=== PATIENT | female | born 1950 | race Caucasian/White ===

== ENCOUNTER → 2017-01-05 | Outpatient (CLI) | payer BC, MEDICARE ==
[~2017-01-05] MED LIST: /LOR25TA PO; ACET500C PO; ACET50TA PO; ALEV220C2 PO; ALEV220T26 PO; AMIT10TA PO; AMIT10TA2 PO; AMIT50TA PO; AMIT50TA4 PO; BENA25TA4 PO; CYCL5TA PO; CYMB1CAP PO; FIORTAB PO; FLEXERIL PO; GABA300C2 PO; GEMF600T PO; GRALISE PO; HYDR-3716 PO; IBUP400T OR; LEVO75TA2 PO; LISI5TAB PO; MELOPOW PO; METH5TAB2 PO; OMEP20TA7 PO; OXYB5TAB5 PO; SIMV40TA2 PO; SOMA350T PO; TOPA100T PO; TOPA100T8 PO; TOPI100T OR; TPS CREAM TOP; TRAZ50TA2 PO; VOLT1GEL2 TD; ZEBE5TAB OR; [UNRECOGNIZED DRUG - CODE] TOP; combination cream TOP; flexeril PO
--- NOTE | 2017-01-17 00:31 | ECWPNPC ---
PATIENT NAME: MORALES WHITTINGTON : 1950 GENDER: FEMALE VISIT DATE: 01/05/2017 DISCHARGE DATE: 01/05/17 1536 VISIT LOCKED DATE TIME: PHYSICIAN: JYOTI JONES RESOURCE: JYOTI JONES HISTORY OF PRESENT ILLNESS HISTORY OF PRESENT ILLNESS: HERE FOR F/U AND MEDICINE MANAGEMENT OF CHONIC NECK AND RIGHT SHOULDER PAIN.HAD TPI ON 07-01-16 TO RIGHT NECK.POST PROC. PAIN DIARY REVIEWED THIS SHOWED ONE MOS. MARKED DECREASE IN PAIN.REPORTING NEW ONSET OF LEFT ARM AND LEFT UPPER SCAPULAR PAIN. RATING PAIN VAS 5/10.CURRENT CHRONIC PAIN MEDICATION :METHADONE 5MG TWO TAB. BID,NORCO 7.5/325 UP TO 4 TAB PER DAY IF NEEDED AND AMITRIPTYLINE 50MG AT HS.FINDS CURRENT MEDICATION SOMEWHAT EFFECTIVE AND DENIES SIDE EFFECTS. PAIN THE PATIENT DESCRIBES THE PAIN... THE PATIENT DESCRIBES THE PAIN... FALL RISK SCREENING: SCREENING :NO FALLS IN THE PAST YEAR CURRENT MEDICATIONS TAKING LEVOTHYROXINE SODIUM 75 MCG CAPSULE ORALLY TAKING AMITRIPTYLINE HCL 50 MG TABLET ORALLY DAILY @ BEDTIME TAKING OXYBUTYNIN CHLORIDE 1 TAB ORALLY DAILY TAKING ADVIL MIGRAINE 200 MG CAPSULE 1 CAPSULE NEEDED ORALLY EVERY 6 HRS NEEDED TAKING VOLTAREN 1 % GEL ONE APPLICATION EXTERNALLY 2GM TO AFFECTED AREA TID NECK PRN TAKING LISINOPRIL 20 MG TABLET 1 TABLET ORALLY ONCE A DAY TAKING [id number]-COD 14-746-94-30 MG CAPSULE 1 CAPSULE NEEDED ORALLY EVERY 8 HRS NEEDED FOR PAIN MDD3 TAKING METHADONE HCL 5 MG TABLET 2 ORALLY Q8H MDD6, NOTES: TAKING Q 12 HOURS TAKING IBUPROFEN 200 MG TABLET 2 TABLETS ORALLY EVERY 6 HRS PRN TAKING NORCO 7.5-325 MG TABLET 1 TABLET NEEDED ORALLY Q6H PRN MDD4 NOT-TAKING COLACE 100 MG CAPSULE 2 ORALLY BID PAST MEDICAL HISTORY HYPOTHYROIDISM HYPERTENSION OSTEOPENIA ARTHRITIS ALLERGIES CYMBALTA: TONGUE AND LIP SWELLING: ALLERGY SOCIAL HISTORY GENERAL: PAIN CLINIC PFS, CLERGY, PUBLIC HEALTH REFERRALS CLERGY REFERRAL NEEDED?NO WAS THE PROVIDER NOTIFIED OF ANY PERTINENT INFO?NO PFS REFERRAL NEEDED?NO PUBLIC HEALTH REFERRAL NEEDED?NO PATIENT: ____. REVIEW OF SYSTEMS CONSTITUTIONAL: ANY CHANGE IN YOUR MEDICAL CONDITION? NO . CHILLS NO . FEVER NO . INFECTION: DO YOU HAVE NEW INFECTIONS? NO . DO YOU HAVE HISTORY OF MRSA? NO . MUSCULOSKELETAL: ANY NEW PATTERNS OF PAIN OR NUMBNESS? NO . GASTROENTEROLOGY: ANY NEW CHANGE IN BOWEL CONTROL? NO . GENITOURINARY: ANY NEW CHANGE IN BLADDER CONTROL? NO . IS THERE A CHANCE YOU COULD BE ? NO . HEMATOLOGY/LYMPH: DO YOU TAKE ANY BLOOD THINNERS? (FOR EXAMPLE- COUMADIN, PLAVIX, AGGRENOX, PLATEL, PRADAXA, OR XARELTO) NO . WHEN WAS YOUR LAST DOSE? DATE: TIME: . NEUROLOGY: HAVE YOU FALLEN IN THE PAST 6 MONTHS? NO . ANY NEW EXTREMITY NUMBNESS OR WEAKNESS? NO . CARDIOLOGY: DO YOU HAVE A PACEMAKER OR DEFIBRILLATOR? NO . RESPIRATORY: HAVE YOU BEEN SICK IN THE PAST WEEK? NO . FEVER NO . FLU LIKE SYMPTOMS? NO . COUGH NO . INTEGUMENTARY: DO YOU HAVE ANY RASHES OR OPEN SORES? NO . ALLERGIC/IMMUNO: ARE YOU ALLERGIC TO SHELLFISH OR IV DYE? NO . ANY NEW ALLERGIES? NO . PSYCHIATRIC: DO YOU HAVE THOUGHTS OF HURTING YOURSELF OR SOMEONE ELSE? NO . ARE YOU ABUSED, NEGLECTED, OR IN AN UNSAFE ENVIRONMENT? NO . ENDOCRINOLOGY: ARE YOU DIABETIC? NO . OTHER: DO YOU NEED ANY PRESCRIPTIONS? NO . IF YES, PLEASE LIST: ____ . ANY NEW PROBLEMS WITH YOUR MEDICATIONS? NO . WHEN DID YOU LAST EAT? ____ . WHEN DID YOU LAST DRINK? ____ . WHAT DID YOU LAST DRINK? ____ . NAME OF PERSON DRIVING YOU HOME? ____ . DO YOU HAVE ANY OTHER QUESTIONS OR CONCERNS NO . REVIEWED BY: PROVIDER: JYOTI MCGOWAN . VITAL SIGNS WT 196.6 LBS, HT 62 IN, BMI 35.95 INDEX, BP 115/54 MM HG, HR 72 /MIN, RR 18 /MIN, TEMP 97.6 F, OXYGEN SAT % 94, NA INITIALS HS, REVIEWED BY: AD. EXAMINATION GENERAL EXAMINATION: LUNGS:LUNG SOUNDS ARE CLEAR. HEART:HEART RATE REGULAR. MUSCULOSKELETAL:*,PAIN ELICITED WITH PALPATION OVER CERVICAL SPINOUS PROCESSES AND ACROSS THE TRAPEZIUS MUSCLES BILATERALLY R>L.. PAIN W PALPATION OVER BILAT. OCCIPITAL NERVE ROUTES SPECIFIC POINT TENDERNESS OVER UPPER THORACIC FACET JOINTS R>L.. DIAGNOSTIC DATA:REVIEWED CT SCAN OF CERVICAL SPINE 2012-MODERATE DEGENRATIVE CHANGES. ASSESSMENTS POST LAMINECTOMY SYNDROME - M96.1 (PRIMARY) CHRONIC PRESCRIPTION OPIATE USE - Z79.891 TREATMENT POST LAMINECTOMY SYNDROME CONTINUE METHADONE HCL TABLET, 5 MG, 2, ORALLY, Q8H MDD6, NOTES: TAKING Q 12 HOURS CONTINUE NORCO TABLET, 7.5-325 MG, 1 TABLET NEEDED, ORALLY, Q6H PRN MDD4 TRIGGER POINT 1-2 JYOTI SUMMERS 01/05/2017 3:14:56 PM > BILAT. UPPER BACK/NECK NOTES: TRIGGER POINT INJECTION MATERIAL WAS PRINTED. PREVENTIVE MEDICINE PAIN CLINIC TEACHING: PROCEDURE TEACHING PRINTED INFROMATION ON TPI GIVEN TO AND EXPLAINED TO PT. ALONG WITH PRE-PROCEDURE INSTRUCTIONS. PT. VERBALIZED UNDERSTANDING OF BOTH.. PROCEDURE CODES FA211 ESTABILISHED PATIENT [facility] CHARGE DISPOSITION & COMMUNICATION FOLLOW UP 2WK POST (REASON: TRIGGER POINT BILAT. UPPER BACK/NECK) ELECTRONICALLY SIGNED BY JUAN M JOHNS ON 01/16/2017 AT 03:47 PM EDT DISCLAIMER : THIS IS A VISIT SUMMARY EXTRACTED FROM THE [employer] CHART. IT IS NOT A COPY OF THE [employer] PROGRESS NOTE. MTDD
== END ==
LOC: M PAIN 14:20
PROVIDERS: ATTEND Nurse Practitioner Family
DX: Z09 Encounter for follow-up examination after completed treatment for conditions other than malignant neoplasm (principal); M96.1 Postlaminectomy syndrome, not elsewhere classified; G89.29 Other chronic pain; M54.2 Cervicalgia; M25.511 Pain in right shoulder; I10 Essential (primary) hypertension; E03.9 Hypothyroidism, unspecified; M85.80 Other specified disorders of bone density and structure, unspecified site; M19.90 Unspecified osteoarthritis, unspecified site; Z88.8 Allergy status to other drugs, medicaments and biological substances; F11.20 Opioid dependence, uncomplicated; Z79.891 Long term (current) use of opiate analgesic; Z79.1 Long term (current) use of non-steroidal anti-inflammatories (NSAID); Z79.899 Other long term (current) drug therapy

== ENCOUNTER → 2017-02-08 | Outpatient (CLI) | payer BC ==
--- NOTE | 2017-02-09 00:19 | ECWPNPC ---
PATIENT NAME: MORALES WHITTINGTON : 1950 GENDER: FEMALE VISIT DATE: 02/08/2017 DISCHARGE DATE: 02/08/17 1000 VISIT LOCKED DATE TIME: PHYSICIAN: JYOTI JONES RESOURCE: JYOTI JONES REASON FOR APPOINTMENT 1. POST TPI HISTORY OF PRESENT ILLNESS HISTORY OF PRESENT ILLNESS: HER FOR POST PROCEDURE FOLLOW UP.HAD TPI UPPER BACK ON 01-10-17.HAS HAD EXTREME IMPROVEMENT IN PAIN AND ABILITY TO TOLERATE ACTIVITY.CHIEF AREA OF PAIN IS RIGHT SHOULDER AND ARM.TAKING ADVIL MIGRAINE PRN.CONTINUES WITH DAILY HEADACHES.AREA OF PAIN UPPER BACK AND BETWEEN SHOULDER BLADES IS MUCH BETTER SINCE INJECTIONS.CURRENTLY USING METHADONE 5MG TWO TAB. TID AND HYDROCODONE 7.5MG Q6H PRN FOR PAIN.RATING PAIN VAS 5/10. PAIN THE PATIENT DESCRIBES THE PAIN... FALL RISK SCREENING: SCREENING :NO FALLS IN THE PAST YEAR CURRENT MEDICATIONS TAKING LEVOTHYROXINE SODIUM 75 MCG CAPSULE ORALLY , NOTES: 01-10-17 0730 TAKING AMITRIPTYLINE HCL 50 MG TABLET ORALLY DAILY @ BEDTIME, NOTES: 01-09-17 2100 TAKING OXYBUTYNIN CHLORIDE 1 TAB ORALLY DAILY, NOTES: 01-09-17 1800 TAKING ADVIL MIGRAINE 200 MG CAPSULE 1 CAPSULE NEEDED ORALLY EVERY 6 HRS NEEDED, NOTES: NONE TAKING VOLTAREN 1 % GEL ONE APPLICATION EXTERNALLY 2GM TO AFFECTED AREA TID NECK PRN, NOTES: 01-09-17 2100 TAKING LISINOPRIL 20 MG TABLET 1 TABLET ORALLY ONCE A DAY, NOTES: 01-10-17 0730 TAKING IBUPROFEN 200 MG TABLET 2 TABLETS ORALLY EVERY 6 HRS PRN, NOTES: NONE TAKING NORCO 7.5-325 MG TABLET 1 TABLET NEEDED ORALLY Q6H PRN MDD4, NOTES: 01-10-17 0200 TAKING METHADONE HCL 5 MG TABLET 2 ORALLY Q8H MDD6, NOTES: TAKING Q 12 HOURS 01-10-17 MIDNIGHT TAKING FIORICET/CODEINE 35-075-21-30 MG CAPSULE 1 CAPSULE NEEDED ORALLY EVERY 8H PRN MDD3 MEDICATION LIST REVIEWED AND RECONCILED WITH THE PATIENT PAST MEDICAL HISTORY HYPOTHYROIDISM HYPERTENSION OSTEOPENIA ARTHRITIS ALLERGIES CYMBALTA: TONGUE AND LIP SWELLING: ALLERGY REVIEW OF SYSTEMS CONSTITUTIONAL: ANY CHANGE IN YOUR MEDICAL CONDITION? NO. PT STATES SHE HAD TPI TO BILAT UPPER BACK 01/10/17. PRE PROCEDURE PAIN WAS 7/10. POST PROCEDURE PAIN 1-12/09. PT C/O HEADACHES POST PROCEDURE STARTING IN OCCIPITAL LOBE BILAT SPREADING TO FRONTAL LOBE BILAT. PT RATES HEADACHES 7-05/11. PT TAKES ADVIL FOR HEADACHES WHICH RELIEVES HEADACHES TO 10/11. . CHILLS NO . FEVER NO . INFECTION: DO YOU HAVE NEW INFECTIONS? NO . DO YOU HAVE HISTORY OF MRSA? NO . MUSCULOSKELETAL: ANY NEW PATTERNS OF PAIN OR NUMBNESS? NO . GASTROENTEROLOGY: ANY NEW CHANGE IN BOWEL CONTROL? NO . GENITOURINARY: ANY NEW CHANGE IN BLADDER CONTROL? NO . IS THERE A CHANCE YOU COULD BE ? NO . HEMATOLOGY/LYMPH: DO YOU TAKE ANY BLOOD THINNERS? (FOR EXAMPLE- COUMADIN, PLAVIX, AGGRENOX, PLATEL, PRADAXA, OR XARELTO) NO . WHEN WAS YOUR LAST DOSE? DATE: TIME: . NEUROLOGY: HAVE YOU FALLEN IN THE PAST 6 MONTHS? NO . ANY NEW EXTREMITY NUMBNESS OR WEAKNESS? NO . CARDIOLOGY: DO YOU HAVE A PACEMAKER OR DEFIBRILLATOR? NO . RESPIRATORY: HAVE YOU BEEN SICK IN THE PAST WEEK? NO . FEVER NO . FLU LIKE SYMPTOMS? NO . COUGH NO . INTEGUMENTARY: DO YOU HAVE ANY RASHES OR OPEN SORES? NO . ALLERGIC/IMMUNO: ARE YOU ALLERGIC TO SHELLFISH OR IV DYE? NO . ANY NEW ALLERGIES? NO . PSYCHIATRIC: DO YOU HAVE THOUGHTS OF HURTING YOURSELF OR SOMEONE ELSE? NO . ARE YOU ABUSED, NEGLECTED, OR IN AN UNSAFE ENVIRONMENT? NO . ENDOCRINOLOGY: ARE YOU DIABETIC? NO . OTHER: DO YOU NEED ANY PRESCRIPTIONS? NO . IF YES, PLEASE LIST: ____ . ANY NEW PROBLEMS WITH YOUR MEDICATIONS? NO . WHEN DID YOU LAST EAT? ____ . WHEN DID YOU LAST DRINK? ____ . WHAT DID YOU LAST DRINK? ____ . NAME OF PERSON DRIVING YOU HOME? ____ . DO YOU HAVE ANY OTHER QUESTIONS OR CONCERNS NO . REVIEWED BY: PROVIDER: JYOTI MCGOWAN . VITAL SIGNS WT 195 LBS, HT 62 IN, BMI 35.66 INDEX, BP 121/67 MM HG, HR 62 /MIN, RR 16 /MIN, TEMP 97.4 F, OXYGEN SAT % 95, SAFE IN ENV? (Y/N) Y, NA INITIALS EM, REVIEWED BY: EM. EXAMINATION GENERAL EXAMINATION: LUNGS:LUNG SOUNDS ARE CLEAR. HEART:HEART RATE REGULAR. MUSCULOSKELETAL:*,PAIN ELICITED WITH PALPATION OVER CERVICAL SPINOUS PROCESSES AND ACROSS THE TRAPEZIUS MUSCLES BILATERALLY R>L.. PAIN W PALPATION OVER BILAT. OCCIPITAL NERVE ROUTES SPECIFIC POINT TENDERNESS OVER UPPER THORACIC FACET JOINTS R>L.. DIAGNOSTIC DATA:REVIEWED CT SCAN OF CERVICAL SPINE 2011-MODERATE DEGENRATIVE CHANGES. ASSESSMENTS POST LAMINECTOMY SYNDROME - M96.1 (PRIMARY) CHRONIC PRESCRIPTION OPIATE USE - Z79.891 TREATMENT POST LAMINECTOMY SYNDROME REFILL NORCO TABLET, 7.5-325 MG, 1 TABLET NEEDED, ORALLY, Q6H PRN MDD4, 30 DAY(S), 120, REFILLS 0, NOTES: 01-10-17 0200 CONTINUE METHADONE HCL TABLET, 5 MG, 2, ORALLY, Q8H MDD6, NOTES: TAKING Q 12 HOURS 01-10-17 MIDNIGHT NOTES: ISTOP REGISTRY REVIEWED AND DEMNOSTRATES COMPLLIANCE. BRINGS IN MEDICATIONS WHICH IS APPROPRIATE FOR WHAT WAS DISPENSED. RECENT URINE TOXICOLOGY REVIEWED. NO UNAUTHORIZED MEDICATIONS. NO ILLICIT SUBSTANCES AND PRESCRIBED MEDICATIONS WERE PRESENT. URINE TOX TODAY, RISKS AND BENEFITS OF NARCOTIC/OPIOD MEDICATIONS WERE REVIEWED WITH PATIENT - THIS INCLUDES BUT IS NOT LIMITED TO RISK OF DEPENDANCE/DEVELOPMENT OF ADDICTION, MOOD DISTURBANCE AND DEPRESSION, OSTEOPOROSIS, HORMONAL AND LABIDAL CHANGES, RESPIRATORY DEPRESSION AND . PATIENT IS ADVISED NOT TO DRIVE WHILE ON THESE MEDICATIONS. PROCEDURE CODES FA211 ESTABILISHED PATIENT [facility] CHARGE DISPOSITION & COMMUNICATION FOLLOW UP 2 MONTHS ELECTRONICALLY SIGNED BY JUAN M JOHNS ON 02/08/2017 AT 02:42 PM EDT DISCLAIMER : THIS IS A VISIT SUMMARY EXTRACTED FROM THE [employer] CHART. IT IS NOT A COPY OF THE [employer] PROGRESS NOTE. MTDD
== END ==
LOC: M PAIN 08:40
PROVIDERS: ATTEND Nurse Practitioner Family
DX: G89.29 Other chronic pain (principal); M96.1 Postlaminectomy syndrome, not elsewhere classified; E03.9 Hypothyroidism, unspecified; I10 Essential (primary) hypertension; M85.80 Other specified disorders of bone density and structure, unspecified site; R51 Headache; M19.90 Unspecified osteoarthritis, unspecified site; Z79.891 Long term (current) use of opiate analgesic; Z79.1 Long term (current) use of non-steroidal anti-inflammatories (NSAID); Z79.899 Other long term (current) drug therapy; Z88.8 Allergy status to other drugs, medicaments and biological substances

== ENCOUNTER → 2017-03-21 | Outpatient (CLI) | payer BC ==
--- NOTE | 2017-03-21 23:59 | ECWPNPC ---
PATIENT NAME: MORALES WHITTINGTON : 1950 GENDER: FEMALE VISIT DATE: 03/21/2017 DISCHARGE DATE: 03/21/17 1536 VISIT LOCKED DATE TIME: PHYSICIAN: JYOTI JONES RESOURCE: JYOTI JONES REASON FOR APPOINTMENT 1. BACK HISTORY OF PRESENT ILLNESS HISTORY OF PRESENT ILLNESS: HER FOR 2 MONTH FOLLOW UP.HAD TPI UPPER BACK ON 01-10-17.HAD EXTREME IMPROVEMENT IN PAIN AND ABILITY TO TOLERATE ACTIVITY.CHIEF AREA OF PAIN IS LEFT NECK AND UPPER BACK. .TAKING ADVIL MIGRAINE PRN.CONTINUES WITH DAILY HEADACHES.CURRENTLY USING METHADONE 5MG TWO TAB. TID AND HYDROCODONE 7.5MG Q6H PRN FOR PAIN.RATING PAIN VAS 4/10. PAIN THE PATIENT DESCRIBES THE PAIN... THE PATIENT DESCRIBES THE PAIN... FALL RISK SCREENING: SCREENING :NO FALLS IN THE PAST YEAR CURRENT MEDICATIONS TAKING LEVOTHYROXINE SODIUM 75 MCG CAPSULE ORALLY DAILY TAKING AMITRIPTYLINE HCL 50 MG TABLET ORALLY DAILY @ BEDTIME TAKING OXYBUTYNIN CHLORIDE 1 TAB ORALLY DAILY TAKING ADVIL MIGRAINE 200 MG CAPSULE 2 CAPSULE NEEDED ORALLY EVERY 6 HRS NEEDED TAKING VOLTAREN 1 % GEL ONE APPLICATION EXTERNALLY 2GM TO AFFECTED AREA TID NECK PRN TAKING LISINOPRIL 20 MG TABLET 1 TABLET ORALLY ONCE A DAY TAKING NORCO 7.5-325 MG TABLET 1 TABLET NEEDED ORALLY Q6H PRN MDD4 TAKING METHADONE HCL 5 MG TABLET 2 ORALLY Q8H MDD6 NOT-TAKING IBUPROFEN 200 MG TABLET 2 TABLETS ORALLY EVERY 6 HRS PRN, NOTES: NONE NOT-TAKING FIORICET/CODEINE [id number] MG CAPSULE 1 CAPSULE NEEDED ORALLY EVERY 8H PRN MDD3 MEDICATION LIST REVIEWED AND RECONCILED WITH THE PATIENT PAST MEDICAL HISTORY HYPOTHYROIDISM HYPERTENSION OSTEOPENIA ARTHRITIS ALLERGIES CYMBALTA: TONGUE AND LIP SWELLING: ALLERGY SOCIAL HISTORY GENERAL: [facility] [id number] NONE PAIN CLINIC PFS, CLERGY, PUBLIC HEALTH REFERRALS PFS REFERRAL NEEDED?NO CLERGY REFERRAL NEEDED?NO PUBLIC HEALTH REFERRAL NEEDED?NO WAS THE PROVIDER NOTIFIED OF ANY PERTINENT INFO?NO HAS THE PATIENT BEEN EDUCATED REGARDING HIS/HER PLAN OF CARE?YES HAS THE PATIENT BEEN EDUCATED REGARDING PAIN, THE RISK FOR PAIN, THE IMPORTANCE OF EFFECTIVE PAIN MANAGEMENT, AND THE PAIN ASSESSMENT PROCESS?YES PATIENT: ____. REVIEW OF SYSTEMS CONSTITUTIONAL: ANY CHANGE IN YOUR MEDICAL CONDITION? NO . CHILLS NO . FEVER NO . INFECTION: DO YOU HAVE NEW INFECTIONS? NO . DO YOU HAVE HISTORY OF MRSA? NO . MUSCULOSKELETAL: ANY NEW PATTERNS OF PAIN OR NUMBNESS? NO . GASTROENTEROLOGY: ANY NEW CHANGE IN BOWEL CONTROL? NO . GENITOURINARY: ANY NEW CHANGE IN BLADDER CONTROL? NO . IS THERE A CHANCE YOU COULD BE ? NO . HEMATOLOGY/LYMPH: DO YOU TAKE ANY BLOOD THINNERS? (FOR EXAMPLE- COUMADIN, PLAVIX, AGGRENOX, PLATEL, PRADAXA, OR XARELTO) NO . WHEN WAS YOUR LAST DOSE? DATE: TIME: . NEUROLOGY: HAVE YOU FALLEN IN THE PAST 6 MONTHS? NO . ANY NEW EXTREMITY NUMBNESS OR WEAKNESS? NO . CARDIOLOGY: DO YOU HAVE A PACEMAKER OR DEFIBRILLATOR? NO . RESPIRATORY: HAVE YOU BEEN SICK IN THE PAST WEEK? NO . FEVER NO . FLU LIKE SYMPTOMS? NO . COUGH NO . INTEGUMENTARY: DO YOU HAVE ANY RASHES OR OPEN SORES? NO . ALLERGIC/IMMUNO: ARE YOU ALLERGIC TO SHELLFISH OR IV DYE? NO . ANY NEW ALLERGIES? NO . PSYCHIATRIC: DO YOU HAVE THOUGHTS OF HURTING YOURSELF OR SOMEONE ELSE? NO . ARE YOU ABUSED, NEGLECTED, OR IN AN UNSAFE ENVIRONMENT? NO . ENDOCRINOLOGY: ARE YOU DIABETIC? NO . OTHER: DO YOU NEED ANY PRESCRIPTIONS? NO . IF YES, PLEASE LIST: ____ . ANY NEW PROBLEMS WITH YOUR MEDICATIONS? NO . WHEN DID YOU LAST EAT? ____ . WHEN DID YOU LAST DRINK? ____ . WHAT DID YOU LAST DRINK? ____ . NAME OF PERSON DRIVING YOU HOME? ____ . DO YOU HAVE ANY OTHER QUESTIONS OR CONCERNS NO . REVIEWED BY: PROVIDER: JYOTI MCGOWAN . VITAL SIGNS WT 191.6 LBS, HT 62 IN, BMI 35.04 INDEX, BP 127/77 MM HG, HR 73 /MIN, RR 16 /MIN, TEMP 97.9 F, OXYGEN SAT % 95%, NA INITIALS TL 1501, REVIEWED BY: CS. EXAMINATION GENERAL EXAMINATION: LUNGS:LUNG SOUNDS ARE CLEAR. HEART:HEART RATE REGULAR. MUSCULOSKELETAL:*,PAIN ELICITED WITH PALPATION OVER CERVICAL SPINOUS PROCESSES AND ACROSS THE TRAPEZIUS MUSCLES BILATERALLY L>R. PAIN W PALPATION OVER BILAT. OCCIPITAL NERVE ROUTESSPECIFIC POINT TENDERNESS OVER UPPER THORACIC FACET JOINTS L>R.. DIAGNOSTIC DATA:REVIEWED CT SCAN OF CERVICAL SPINE 2011-MODERATE DEGENRATIVE CHANGES. ASSESSMENTS POST LAMINECTOMY SYNDROME - M96.1 (PRIMARY) CHRONIC PRESCRIPTION OPIATE USE - Z79.891 TREATMENT POST LAMINECTOMY SYNDROME CONTINUE NORCO TABLET, 7.5-325 MG, 1 TABLET NEEDED, ORALLY, Q6H PRN MDD4 CONTINUE METHADONE HCL TABLET, 5 MG, 2, ORALLY, Q8H MDD6 START FIORICET/CODEINE CAPSULE, 63-414-05-30 MG, 1 CAPSULE NEEDED, ORALLY, EVERY 4 HRS PRN PAIN MDD2, 30 DAY(S), 15, REFILLS 0 NOTES: ISTOP REGISTRY REVIEWED AND DEMNOSTRATES COMPLLIANCE. BRINGS IN MEDICATIONS WHICH IS APPROPRIATE FOR WHAT WAS DISPENSED. RECENT URINE TOXICOLOGY REVIEWED. NO UNAUTHORIZED MEDICATIONS. NO ILLICIT SUBSTANCES AND PRESCRIBED MEDICATIONS WERE PRESENT. , RISKS AND BENEFITS OF NARCOTIC/OPIOD MEDICATIONS WERE REVIEWED WITH PATIENT - THIS INCLUDES BUT IS NOT LIMITED TO RISK OF DEPENDANCE/DEVELOPMENT OF ADDICTION, MOOD DISTURBANCE AND DEPRESSION, OSTEOPOROSIS, HORMONAL AND LABIDAL CHANGES, RESPIRATORY DEPRESSION AND . PATIENT IS ADVISED NOT TO DRIVE WHILE ON THESE MEDICATIONSBILAT. C4/5-C6/7 CERVICAL FACET BLOCK-THERAPEUTIC. PROCEDURE CODES FA211 ESTABILISHED PATIENT [facility] CHARGE DISPOSITION & COMMUNICATION FOLLOW UP 2WK POST (REASON: BILAT. C4/5-C6/7 CERVICAL FACET BLOCK-THERAPEUTIC) ELECTRONICALLY SIGNED BY JUAN M JOHNS ON 03/21/2017 AT 03:59 PM EDT DISCLAIMER : THIS IS A VISIT SUMMARY EXTRACTED FROM THE [employer] CHART. IT IS NOT A COPY OF THE [employer] PROGRESS NOTE. PATD
== END ==
LOC: M PAIN 15:00
PROVIDERS: ATTEND Nurse Practitioner Family
DX: M96.1 Postlaminectomy syndrome, not elsewhere classified (principal); E03.9 Hypothyroidism, unspecified; I10 Essential (primary) hypertension; M85.80 Other specified disorders of bone density and structure, unspecified site; M19.90 Unspecified osteoarthritis, unspecified site; Z88.8 Allergy status to other drugs, medicaments and biological substances; F11.20 Opioid dependence, uncomplicated; Z79.899 Other long term (current) drug therapy

== ENCOUNTER → 2017-04-12 | Outpatient (CLI) | payer BC ==
[~2017-04-12] MED LIST changes: +BUPIVACAINE HCL 0.25% 30 ML VIAL As Ordered ONE; +ISOVUE-M 300 61% 15ML VIAL (Q9967) As Ordered ONE; +LIDOCAINE 1% SDV INJ 30 ML VIAL As Ordered ONE; +TOPA100T12 PO; -TOPA100T8 PO; +TRIAMCINOLONE ACETONIDE SUSP 40 MG/ML VIAL (J3301) As Ordered ONE; +diazePAM 5 MG TAB As Ordered ONE; +oxyCODONE 5MG TAB As Ordered ONE
--- NOTE | 2017-04-12 14:03 | REP ---
PARTIAL CERVICAL SPINE SERIES: Single view. HISTORY: Cervical facet block for pain. 44 seconds of fluoroscopy time is reported. FINDINGS: A single fluoroscopically obtained last image hold spot radiograph of the cervical spine documents various needle positions and contrast injections. A dorsal column stimulator is seen. Signed by Mehdi Lewis MD 04/12/2017 02:07 P
--- NOTE | 2017-04-16 23:28 | ECWPNPC ---
PATIENT NAME: MORALES WHITTINGTON : 1950 GENDER: FEMALE VISIT DATE: 04/12/2017 DISCHARGE DATE: 04/12/17 1355 VISIT LOCKED DATE TIME: PHYSICIAN: RIGO ZELAYA RESOURCE: RIGO ZELAYA REASON FOR APPOINTMENT 1. CER FACETS, C4/5,C6/7 HISTORY OF PRESENT ILLNESS HISTORY OF PRESENT ILLNESS: PAIN THE PATIENT DESCRIBES THE PAIN... FALL RISK SCREENING: SCREENING :NO FALLS IN THE PAST YEAR CURRENT MEDICATIONS TAKING LEVOTHYROXINE SODIUM 75 MCG CAPSULE ORALLY DAILY, NOTES: 04-12-17 0700 TAKING AMITRIPTYLINE HCL 50 MG TABLET ORALLY DAILY @ BEDTIME, NOTES: 04-11-17 2200 TAKING OXYBUTYNIN CHLORIDE 1 TAB ORALLY DAILY, NOTES: 04-11-17 1900 TAKING ADVIL MIGRAINE 200 MG CAPSULE 2 CAPSULE NEEDED ORALLY EVERY 6 HRS NEEDED, NOTES: NONE TAKING LISINOPRIL 20 MG TABLET 1 TABLET ORALLY ONCE A DAY, NOTES: 04-12-17 0700 TAKING NORCO 7.5-325 MG TABLET 1 TABLET NEEDED ORALLY Q6H PRN MDD4, NOTES: 04-11-17 2100 TAKING METHADONE HCL 5 MG TABLET 2 ORALLY Q8H MDD6, NOTES: 04-12-17 0700 TAKING FIORICET/CODEINE [id number] MG CAPSULE 1 CAPSULE NEEDED ORALLY EVERY 4 HRS PRN PAIN MDD2, NOTES: NONE TAKING VOLTAREN 1 % GEL ONE APPLICATION EXTERNALLY 2GM TO AFFECTED AREA TID NECK PRN, NOTES: 04-11-17 AM TAKING ACETAMINOPHEN EXTRA STRENGTH 500 MG TABLET 2 TABLETS NEEDED ORALLY EVERY 6 HRS, NOTES: 04-12-17 1000 NOT-TAKING IBUPROFEN 200 MG TABLET 2 TABLETS ORALLY EVERY 6 HRS PRN, NOTES: NONE NOT-TAKING FIORICET/CODEINE 27-485-05-30 MG CAPSULE 1 CAPSULE NEEDED ORALLY EVERY 8H PRN MDD3 MEDICATION LIST REVIEWED AND RECONCILED WITH THE PATIENT PAST MEDICAL HISTORY HYPOTHYROIDISM HYPERTENSION OSTEOPENIA ARTHRITIS ALLERGIES CYMBALTA: TONGUE AND LIP SWELLING: ALLERGY REVIEW OF SYSTEMS REVIEWED BY: PROVIDER: . CONSTITUTIONAL: ANY CHANGE IN YOUR MEDICAL CONDITION? NO . CHILLS NO . FEVER NO . INFECTION: DO YOU HAVE NEW INFECTIONS? NO . DO YOU HAVE HISTORY OF MRSA? NO . MUSCULOSKELETAL: ANY NEW PATTERNS OF PAIN OR NUMBNESS? NO . GASTROENTEROLOGY: ANY NEW CHANGE IN BOWEL CONTROL? NO . GENITOURINARY: ANY NEW CHANGE IN BLADDER CONTROL? NO . IS THERE A CHANCE YOU COULD BE ? NO . HEMATOLOGY/LYMPH: DO YOU TAKE ANY BLOOD THINNERS? (FOR EXAMPLE- COUMADIN, PLAVIX, AGGRENOX, PLATEL, PRADAXA, OR XARELTO) NO . WHEN WAS YOUR LAST DOSE? DATE: TIME: . NEUROLOGY: HAVE YOU FALLEN IN THE PAST 6 MONTHS? NO . ANY NEW EXTREMITY NUMBNESS OR WEAKNESS? NO . CARDIOLOGY: DO YOU HAVE A PACEMAKER OR DEFIBRILLATOR? NO . RESPIRATORY: HAVE YOU BEEN SICK IN THE PAST WEEK? NO . FEVER NO . FLU LIKE SYMPTOMS? NO . COUGH NO . INTEGUMENTARY: DO YOU HAVE ANY RASHES OR OPEN SORES? NO . ALLERGIC/IMMUNO: ARE YOU ALLERGIC TO SHELLFISH OR IV DYE? NO . ANY NEW ALLERGIES? NO . PSYCHIATRIC: DO YOU HAVE THOUGHTS OF HURTING YOURSELF OR SOMEONE ELSE? NO . ARE YOU ABUSED, NEGLECTED, OR IN AN UNSAFE ENVIRONMENT? NO . ENDOCRINOLOGY: ARE YOU DIABETIC? NO . OTHER: DO YOU NEED ANY PRESCRIPTIONS? NO . IF YES, PLEASE LIST: ____ . ANY NEW PROBLEMS WITH YOUR MEDICATIONS? NO . WHEN DID YOU LAST EAT? 04-11-17 1:30 PM . WHEN DID YOU LAST DRINK? 04-12-17 0730 . WHAT DID YOU LAST DRINK? WATER . NAME OF PERSON DRIVING YOU HOME? ERIN . DO YOU HAVE ANY OTHER QUESTIONS OR CONCERNS NO . VITAL SIGNS WT 193 LBS, HT 62 IN, BMI 35.30 INDEX, BP 139/79 MM HG, HR 67 /MIN, RR 16 /MIN, TEMP 97.3 F, OXYGEN SAT % 95%, NA INITIALS SC 11:44, REVIEWED BY: CM. ASSESSMENTS SPONDYLOSIS WITHOUT MYELOPATHY OR RADICULOPATHY, CERVICAL REGION - M47.812 (PRIMARY) PROCEDURES PN CERVICAL FACET BLOCK LOW BILATERAL CERVICAL PRE PROCEDURE DIAGNOSIS CERVICAL SPONDYLOSIS POST PROCEDURE DIAGNOSIS CERVICAL SPONDYLOSIS PROCEDURE LEFT C2-C3, C3-C4, AND LEFT C4-C5 CERVICAL FACET BLOCK SURGEON DR. RIGO ZELAYA POT SANDER NONE ANESTHESIA LOCAL PRE PROCEDURE NOTE THE PATIENT HAS HISTORY OF CHRONIC CERVICAL PAIN. I EVALUATE THE PATIENT AND REVIEWED THE CHART. I WENT OVER THE RISKS, ALTERNATIVES, AND BENEFITS ASSOCIATED WITH THIS PROCEDURE. THE PATIENT WOULD LIKE TO PROCEED AND GIVE CONSENT TO PERFORMED THE PROCEDURE. THE PATIENT DENIES UNEXPLAINABLE WEIGHT LOSS, FEVER, CHILLS, OR NEW CHANGES IN URINARY OR BOWEL CONTROL DESCRIPTION OF PROCEDURE THE PATIENT WAS BROUGHT TO THE PROCEDURE ROOM AND PLACED IN THE PRONE POSITION. THE CERVICOTHORACIC AREA WAS CLEANED WITH CHLORAPREP SOLUTION AND DRAPED ASEPTICALLY. THE PROCEDURE WAS DONE UNDER STERILE CONDITIONS. I CHECKED LATERALITY AND THE LEVEL WHERE THE PROCEDURE WAS GOING TO BE PERFORMED WITH THE PATIENT AND THE SUPPORTING STAFF AT THE MOMENT OF THE TIME OUT IN THE PROCEDURE ROOM. UNDER FLUOROSCOPIC GUIDANCE, TARGET POINT WAS SELECTED AT THE LEFT C2-C3, LEFT C3-C4 AND LEFT C4-C5 CERVICAL FACET JOINT. TARGET POINTS WERE SELECTED AFTER LATERAL ROTATION AND TILT OF THE MAGNIFIER OF THE C-ARM. LIDOCAINE 0.5% WAS USED TO NUMB THE SKIN AND THE SUBCUTANEOUS TISSUE BELOW IT. SPINAL NEEDLES, 22-GAUGE, WERE ADVANCED UNDER FLUOROSCOPIC GUIDANCE AND FOLLOWING PATIENT FEEDBACK UNTIL THE TARGETS WERE TOUCHED. THE POSITION OF THE NEEDLES WAS VERIFIED WITH AP AND LATERAL VIEWS. AFTER PROPER POSITION OF THE NEEDLES WAS ACHIEVED, ISOVUE M DYE 30, 0.1 ML WAS INJECTED SHOWING SPREAD OF THE DYE. THEN A SOLUTION OF 0.9 ML OF BUPIVACAINE 0.125% AND KENALOG 10 MG WAS INJECTED AT EACH SITE. THERE WAS NO EVIDENCE OF BLOOD, PARESTHESIA OR CEREBROSPINAL FLUID DURING THE PROCEDURE. THE PATIENT WAS SENT TO THE RECOVERY ROOM. THE PATIENT WAS MOVING THE EXTREMITIES AND DOING WELL. THERE WAS NO COMPLICATION DURING THE PROCEDURE. FLUOROSCOPY TIME WAS 44 SECONDS POST PROCEDURE NOTE THE PATIENT WILL BE SEEN IN A FOLLOW UP IN THE NEXT FEW WEEKS. INSTRUCTIONS WERE GIVEN, QUESTIONS WERE ANSWERED, AND THE PATIENT EXPRESSED UNDERSTANDING AND AGREES WITH THE PLAN. I, LIZ SERRANO, DOCUMENTED THE ABOVE INFORMATION ACTING A SCRIBE FOR DR. ZELAYA. I HAVE REVIEWED THE ABOVE DOCUMENT, WRITTEN BY LIZ BALLARDIBPalomo AND I VERIFY THAT IT IS [facility]URATE DIAGNOSTIC IMAGING [facility] FACET BLOCK (PAIN)[id number] PROCEDURE CODES 84957 INJ PARAVERT F JNT C/T 1 LEV 18683 INJ PARAVERT F JNT C/T 2 LEV 6045F RADXPS IN END [id number] PXD 83948 INJ PARAVERT F JNT C/T 3 LEV DISPOSITION & COMMUNICATION FOLLOW UP 3 WEEKS ELECTRONICALLY SIGNED BY RIGO ZELAYA MD ON 04/16/2017 AT 09:24 PM EDT DISCLAIMER : THIS IS A VISIT SUMMARY EXTRACTED FROM THE [employer] CHART. IT IS NOT A COPY OF THE [employer] PROGRESS NOTE. SINDY
== END ==
LOC: M PAIN 11:40
PROVIDERS: ATTEND Anesthesiology
DX: G89.29 Other chronic pain (principal); M47.812 Spondylosis without myelopathy or radiculopathy, cervical region; E03.9 Hypothyroidism, unspecified; I10 Essential (primary) hypertension; M85.80 Other specified disorders of bone density and structure, unspecified site; M19.90 Unspecified osteoarthritis, unspecified site; Z88.8 Allergy status to other drugs, medicaments and biological substances; F11.20 Opioid dependence, uncomplicated; Z79.899 Other long term (current) drug therapy
CPT/HCPCS: 64490; 64491; 64492; J3301; Q9967

== ENCOUNTER → 2017-07-05 | Outpatient (CLI) | payer BC ==
[~2017-07-05] MED LIST changes: -BUPIVACAINE HCL 0.25% 30 ML VIAL As Ordered ONE; -ISOVUE-M 300 61% 15ML VIAL (Q9967) As Ordered ONE; -LIDOCAINE 1% SDV INJ 30 ML VIAL As Ordered ONE; -TRIAMCINOLONE ACETONIDE SUSP 40 MG/ML VIAL (J3301) As Ordered ONE; -diazePAM 5 MG TAB As Ordered ONE; -oxyCODONE 5MG TAB As Ordered ONE
--- NOTE | 2017-07-25 02:18 | ECWPNPC ---
PATIENT NAME: MORALES WHITTINGTON : 1950 GENDER: FEMALE VISIT DATE: 07/05/2017 DISCHARGE DATE: 07/05/17 1244 VISIT LOCKED DATE TIME: PHYSICIAN: JYOTI JONES RESOURCE: JYOTI JONES REASON FOR APPOINTMENT 1. NECK HISTORY OF PRESENT ILLNESS HISTORY OF PRESENT ILLNESS: HER FOR POST PROCEDURE FOLLOW UP.HAD LEFT C2-3/C3-C4/C4-5 THERAPEUTIC FACET BLOCK ON 04-12-17.HAS HAD EXTREME IMPROVEMENT IN PAIN AND ABILITY TO TOLERATE ACTIVITY.CHIEF AREA OF PAIN IS RIGHT SHOULDER AND ARM.TAKING ADVIL MIGRAINE PRN.CONTINUES WITH DAILY HEADACHES.AREA OF PAIN UPPER BACK AND BETWEEN SHOULDER BLADES IS MUCH BETTER SINCE INJECTIONS.CURRENTLY USING METHADONE 5MG TWO TAB. TID AND HYDROCODONE 7.5MG Q6H PRN FOR PAIN.RATING PAIN VAS 3-4/10.HOSPITALIZED FOR ONE WEEKIN APRIL AT [facility] FOR GASTRITIS AND SEPSIS.THERE WAS SOME ISSUES THOUGHT TO BE RELATED TO METHADONE AND IT HAS BEEN SUGGESTED SHE WEAN OFF THIS. PAIN THE PATIENT DESCRIBES THE PAIN... THE PATIENT DESCRIBES THE PAIN... FALL RISK SCREENING: SCREENING :NO FALLS IN THE PAST YEAR CURRENT MEDICATIONS TAKING LEVOTHYROXINE SODIUM 75 MCG CAPSULE ORALLY DAILY TAKING AMITRIPTYLINE HCL 50 MG TABLET ORALLY DAILY @ BEDTIME TAKING OXYBUTYNIN CHLORIDE 1 TAB ORALLY DAILY TAKING LISINOPRIL 20 MG TABLET 1 TABLET ORALLY ONCE A DAY TAKING VOLTAREN 1 % GEL ONE APPLICATION EXTERNALLY 2GM TO AFFECTED AREA TID NECK PRN TAKING ACETAMINOPHEN EXTRA STRENGTH 500 MG TABLET 2 TABLETS NEEDED ORALLY EVERY 6 HRS TAKING NORCO 7.5-325 MG TABLET 1 TABLET NEEDED ORALLY Q6H PRN MDD4 TAKING METHADONE HCL 5 MG TABLET 2 ORALLY Q8H MDD6 TAKING DULCOLAX BALANCE - POWDER 1 PACKET ORALLY DAILY NOT-TAKING ADVIL MIGRAINE 200 MG CAPSULE 2 CAPSULE NEEDED ORALLY EVERY 6 HRS NEEDED NOT-TAKING FIORICET/CODEINE 28-386-54-30 MG CAPSULE 1 CAPSULE NEEDED ORALLY EVERY 4 HRS PRN PAIN MDD2 NOT-TAKING IBUPROFEN 200 MG TABLET 2 TABLETS ORALLY EVERY 6 HRS PRN, NOTES: NONE NOT-TAKING FIORICET/CODEINE [id number] MG CAPSULE 1 CAPSULE NEEDED ORALLY EVERY 8H PRN MDD3 MEDICATION LIST REVIEWED AND RECONCILED WITH THE PATIENT PAST MEDICAL HISTORY HYPOTHYROIDISM HYPERTENSION OSTEOPENIA ARTHRITIS ALLERGIES CYMBALTA: TONGUE AND LIP SWELLING: ALLERGY SOCIAL HISTORY GENERAL: TOBACCO USE ARE YOU A:NONSMOKER ALCOHOL SCREENING POINTS1 INTERPRETATIONNEGATIVE RECREATIONAL DRUG USE DRUG USE?NO SABIANIST [id number] NONE LANGUAGE LANGUAGES SPOKEN:BRUNEIAN LEARNING BARRIERS / SPECIAL NEEDS BARRIERS TO LEARNING?NO HEARING IMPAIRED?NO VISION IMPAIRED?YES CONTACTS COGNITIVELY IMPAIRED?NO READINESS TO LEARN?YES LEARNING PREFERENCES?NO LEARNING CAPABILITIES PRESENT?YES EMOTIONAL BARRIERS?NO SPECIAL DEVICES?NO FURNACE TAPPER NEEDED?NO PAIN CLINIC PFS, CLERGY, PUBLIC HEALTH REFERRALS PFS REFERRAL NEEDED?NO CLERGY REFERRAL NEEDED?NO PUBLIC HEALTH REFERRAL NEEDED?NO WAS THE PROVIDER NOTIFIED OF ANY PERTINENT INFO?NO HAS THE PATIENT BEEN EDUCATED REGARDING HIS/HER PLAN OF CARE?YES HAS THE PATIENT BEEN EDUCATED REGARDING PAIN, THE RISK FOR PAIN, THE IMPORTANCE OF EFFECTIVE PAIN MANAGEMENT, AND THE PAIN ASSESSMENT PROCESS?YES PATIENT: ____. REVIEW OF SYSTEMS REVIEWED BY: PROVIDER: JYOTI MCGOWAN . CONSTITUTIONAL: ANY CHANGE IN YOUR MEDICAL CONDITION? YES, WAS HOSPITALIZED 04/26/17 AT [facility] FOR GASTRITIS AND SEPSIS FOR ABOUT A WEEK . CHILLS NO . FEVER NO . INFECTION: DO YOU HAVE NEW INFECTIONS? NO . DO YOU HAVE HISTORY OF MRSA? NO . MUSCULOSKELETAL: ANY NEW PATTERNS OF PAIN OR NUMBNESS? NO . GASTROENTEROLOGY: ANY NEW CHANGE IN BOWEL CONTROL? YES, CONSTIPATED AND WAS STARTED ON DULCOLAX . GENITOURINARY: ANY NEW CHANGE IN BLADDER CONTROL? NO . IS THERE A CHANCE YOU COULD BE ? NO . HEMATOLOGY/LYMPH: DO YOU TAKE ANY BLOOD THINNERS? (FOR EXAMPLE- COUMADIN, PLAVIX, AGGRENOX, PLATEL, PRADAXA, OR XARELTO) NO . WHEN WAS YOUR LAST DOSE? DATE: TIME: . NEUROLOGY: HAVE YOU FALLEN IN THE PAST 6 MONTHS? NO . ANY NEW EXTREMITY NUMBNESS OR WEAKNESS? NO . CARDIOLOGY: DO YOU HAVE A PACEMAKER OR DEFIBRILLATOR? NO . RESPIRATORY: HAVE YOU BEEN SICK IN THE PAST WEEK? NO . FEVER NO . FLU LIKE SYMPTOMS? NO . COUGH NO . INTEGUMENTARY: DO YOU HAVE ANY RASHES OR OPEN SORES? NO . ALLERGIC/IMMUNO: ARE YOU ALLERGIC TO SHELLFISH OR IV DYE? NO . ANY NEW ALLERGIES? NO . PSYCHIATRIC: DO YOU HAVE THOUGHTS OF HURTING YOURSELF OR SOMEONE ELSE? NO . ARE YOU ABUSED, NEGLECTED, OR IN AN UNSAFE ENVIRONMENT? NO . ENDOCRINOLOGY: ARE YOU DIABETIC? NO . OTHER: DO YOU NEED ANY PRESCRIPTIONS? NO . IF YES, PLEASE LIST: ____ . ANY NEW PROBLEMS WITH YOUR MEDICATIONS? NO . WHEN DID YOU LAST EAT? ____ . WHEN DID YOU LAST DRINK? ____ . WHAT DID YOU LAST DRINK? ____ . NAME OF PERSON DRIVING YOU HOME? ____ . DO YOU HAVE ANY OTHER QUESTIONS OR CONCERNS NO . VITAL SIGNS WT 183 LBS, HT 62 IN, BMI 33.47 INDEX, BP 118/65 MM HG, HR 67 /MIN, RR 16 /MIN, TEMP 97.2 F, OXYGEN SAT % 96%, NA INITIALS AW 1155, REVIEWED BY: CS. EXAMINATION GENERAL EXAMINATION: LUNGS:LUNG SOUNDS ARE CLEAR. HEART:HEART RATE REGULAR. MUSCULOSKELETAL:*,PAIN ELICITED WITH PALPATION OVER CERVICAL SPINOUS PROCESSES AND ACROSS THE TRAPEZIUS MUSCLES BILATERALLY L>R. PAIN W PALPATION OVER BILAT. OCCIPITAL NERVE ROUTES SPECIFIC POINT TENDERNESS OVER UPPER THORACIC FACET JOINTS L>R.. DIAGNOSTIC DATA:REVIEWED CT SCAN OF CERVICAL SPINE 2011-MODERATE DEGENRATIVE CHANGES. ASSESSMENTS POST LAMINECTOMY SYNDROME - M96.1 (PRIMARY) TREATMENT POST LAMINECTOMY SYNDROME DECREASE METHADONE HCL TABLET, 5 MG, ONE TO TWO DIRECTED, ORALLY, 1 IN AM,2ATNOON,1 IN PM MDD4, 30 DAY(S), 120, REFILLS 0 CONTINUE NORCO TABLET, 7.5-325 MG, 1 TABLET NEEDED, ORALLY, Q6H PRN MDD4 NOTES: C2/3,C3/4,C4/5 CERVICAL THERAPEUTIC BLOCK-LEFT. PREVENTIVE MEDICINE PAIN CLINIC TEACHING: PROCEDURE TEACHING PRE-PROCEDURE TEACHING DONE AND PATIENT VERBALIZES UNDERSTANDING.. PROCEDURE CODES FA211 ESTABILISHED PATIENT [facility] CHARGE DISPOSITION & COMMUNICATION FOLLOW UP 2WK POST (REASON: C2/3,C3/4,C4/5 CERVICAL THERAPEUTIC BLOCK-LEFT) ELECTRONICALLY SIGNED BY JUAN M JOHNS ON 07/24/2017 AT 07:47 PM EDT DISCLAIMER : THIS IS A VISIT SUMMARY EXTRACTED FROM THE [employer] CHART. IT IS NOT A COPY OF THE [employer] PROGRESS NOTE. MTDD
== END ==
LOC: M PAIN 11:15
PROVIDERS: ATTEND Nurse Practitioner Family
DX: M96.1 Postlaminectomy syndrome, not elsewhere classified (principal); M54.2 Cervicalgia; E03.9 Hypothyroidism, unspecified; I10 Essential (primary) hypertension; Z88.8 Allergy status to other drugs, medicaments and biological substances; F11.20 Opioid dependence, uncomplicated; Z79.899 Other long term (current) drug therapy

== ENCOUNTER → 2017-07-13 | Outpatient (CLI) | payer BC, MEDICARE ==
[~2017-07-13] MED LIST changes: +BUPIVACAINE HCL 0.25% 30 ML VIAL As Ordered ONE; +ISOVUE-M 300 61% 15ML VIAL (Q9967) As Ordered ONE; +LIDOCAINE 1% SDV INJ 30 ML VIAL As Ordered ONE; +TRIAMCINOLONE ACETONIDE SUSP 40 MG/ML VIAL (J3301) As Ordered ONE; +diazePAM 5 MG TAB As Ordered ONE; +oxyCODONE 5MG TAB As Ordered ONE
--- NOTE | 2017-07-13 16:56 | REP ---
Partial cervical spine series: Three views. History: Left cervical block for pain. 52 seconds of fluoroscopy time is reported. Findings: A sequence of three last image hold fluoroscopic spot radiographs of the cervical spine document various needle positions and contrast injections associated with facet injection procedure. Signed by Mehdi Lewis MD 07/13/2017 05:14 P
--- NOTE | 2017-07-18 00:41 | ECWPNPC ---
PATIENT NAME: MORALES WHITTINGTON : 1950 GENDER: FEMALE VISIT DATE: 07/13/2017 DISCHARGE DATE: 07/13/17 1342 VISIT LOCKED DATE TIME: PHYSICIAN: RIGO ZELAYA RESOURCE: RIGO ZELAYA REASON FOR APPOINTMENT 1. CERVICAL FACET HISTORY OF PRESENT ILLNESS HISTORY OF PRESENT ILLNESS: PAIN THE PATIENT DESCRIBES THE PAIN... FALL RISK SCREENING: SCREENING :NO FALLS IN THE PAST YEAR CURRENT MEDICATIONS TAKING LEVOTHYROXINE SODIUM 75 MCG CAPSULE ORALLY DAILY, NOTES: 07-13-17 0800 TAKING AMITRIPTYLINE HCL 50 MG TABLET ORALLY DAILY @ BEDTIME, NOTES: 07-12-172099 TAKING OXYBUTYNIN CHLORIDE 1 TAB ORALLY DAILY, NOTES: 07-12-172029 TAKING LISINOPRIL 20 MG TABLET 1 TABLET ORALLY ONCE A DAY, NOTES: 07-13-17 0800 TAKING VOLTAREN 1 % GEL ONE APPLICATION EXTERNALLY 2GM TO AFFECTED AREA TID NECK PRN, NOTES: NOT LATELY TAKING ACETAMINOPHEN EXTRA STRENGTH 500 MG TABLET 2 TABLETS NEEDED ORALLY EVERY 6 HRS, NOTES: 07-12-17 0800 TAKING DULCOLAX BALANCE - POWDER 1 PACKET ORALLY DAILY, NOTES: NOT LATELY TAKING METHADONE HCL 5 MG TABLET ONE TO TWO DIRECTED ORALLY 1 IN AM,2ATNOON,1 IN PM MDD4, NOTES: 07-13-17 0930 TAKING NORCO 7.5-325 MG TABLET 1 TABLET NEEDED ORALLY Q6H PRN MDD4, NOTES: NOT LATELY NOT-TAKING ADVIL MIGRAINE 200 MG CAPSULE 2 CAPSULE NEEDED ORALLY EVERY 6 HRS NEEDED NOT-TAKING FIORICET/CODEINE [id number] MG CAPSULE 1 CAPSULE NEEDED ORALLY EVERY 4 HRS PRN PAIN MDD2 NOT-TAKING IBUPROFEN 200 MG TABLET 2 TABLETS ORALLY EVERY 6 HRS PRN, NOTES: NONE NOT-TAKING FIORICET/CODEINE [id number] MG CAPSULE 1 CAPSULE NEEDED ORALLY EVERY 8H PRN MDD3 MEDICATION LIST REVIEWED AND RECONCILED WITH THE PATIENT PAST MEDICAL HISTORY HYPOTHYROIDISM HYPERTENSION OSTEOPENIA ARTHRITIS ALLERGIES CYMBALTA: TONGUE AND LIP SWELLING: ALLERGY REVIEW OF SYSTEMS REVIEWED BY: PROVIDER: . CONSTITUTIONAL: ANY CHANGE IN YOUR MEDICAL CONDITION? NO . CHILLS NO . FEVER NO . INFECTION: DO YOU HAVE NEW INFECTIONS? NO . DO YOU HAVE HISTORY OF MRSA? NO . MUSCULOSKELETAL: ANY NEW PATTERNS OF PAIN OR NUMBNESS? NO . GASTROENTEROLOGY: ANY NEW CHANGE IN BOWEL CONTROL? NO . GENITOURINARY: ANY NEW CHANGE IN BLADDER CONTROL? NO . IS THERE A CHANCE YOU COULD BE ? NO . HEMATOLOGY/LYMPH: DO YOU TAKE ANY BLOOD THINNERS? (FOR EXAMPLE- COUMADIN, PLAVIX, AGGRENOX, PLATEL, PRADAXA, OR XARELTO) NO . WHEN WAS YOUR LAST DOSE? DATE: TIME: . NEUROLOGY: HAVE YOU FALLEN IN THE PAST 6 MONTHS? NO . ANY NEW EXTREMITY NUMBNESS OR WEAKNESS? NO . CARDIOLOGY: DO YOU HAVE A PACEMAKER OR DEFIBRILLATOR? NO . RESPIRATORY: HAVE YOU BEEN SICK IN THE PAST WEEK? NO . FEVER NO . FLU LIKE SYMPTOMS? NO . COUGH NO . INTEGUMENTARY: DO YOU HAVE ANY RASHES OR OPEN SORES? NO . ALLERGIC/IMMUNO: ARE YOU ALLERGIC TO SHELLFISH OR IV DYE? NO . ANY NEW ALLERGIES? NO . PSYCHIATRIC: DO YOU HAVE THOUGHTS OF HURTING YOURSELF OR SOMEONE ELSE? NO . ARE YOU ABUSED, NEGLECTED, OR IN AN UNSAFE ENVIRONMENT? NO . ENDOCRINOLOGY: ARE YOU DIABETIC? NO . OTHER: DO YOU NEED ANY PRESCRIPTIONS? NO . IF YES, PLEASE LIST: ____ . ANY NEW PROBLEMS WITH YOUR MEDICATIONS? NO . WHEN DID YOU LAST EAT? ____530 LAST NIGHT . WHEN DID YOU LAST DRINK? ____THIS MORNING FOR MEDS . WHAT DID YOU LAST DRINK? ____WATER . NAME OF PERSON DRIVING YOU HOME? ____BRIAN - . DO YOU HAVE ANY OTHER QUESTIONS OR CONCERNS NO . VITAL SIGNS WT 188 LBS, HT 62 IN, BMI 34.38 INDEX, BP 131/60 MM HG, HR 67 /MIN, RR 16 /MIN, TEMP 97.3 F, OXYGEN SAT % 94%, SAFE IN ENV? (Y/N) YES, NA INITIALS SC 11:11, REVIEWED BY: KG. ASSESSMENTS SPONDYLOSIS OF CERVICAL REGION WITHOUT MYELOPATHY OR RADICULOPATHY - M47.812 (PRIMARY) PROCEDURES PN CERVICAL FACET BLOCK LOW BILATERAL CERVICAL PRE PROCEDURE DIAGNOSIS CERVICAL SPONDYLOSIS POST PROCEDURE DIAGNOSIS CERVICAL SPONDYLOSIS PROCEDURE LEFT C2-C3, LEFT C3-C4, AND LEFT C4-C5 CERVICAL FACET BLOCK SURGEON DR. RIGO ZELAYA WHISKEY FILTERER NONE ANESTHESIA LOCAL PRE PROCEDURE NOTE THE PATIENT HAS HISTORY OF CHRONIC CERVICAL PAIN. I EVALUATE THE PATIENT AND REVIEWED THE CHART. I WENT OVER THE RISKS, ALTERNATIVES, AND BENEFITS ASSOCIATED WITH THIS PROCEDURE. THE PATIENT WOULD LIKE TO PROCEED AND GIVE CONSENT TO PERFORMED THE PROCEDURE. THE PATIENT DENIES UNEXPLAINABLE WEIGHT LOSS, FEVER, CHILLS, OR NEW CHANGES IN URINARY OR BOWEL CONTROL. DESCRIPTION OF PROCEDURE THE PATIENT WAS BROUGHT TO THE PROCEDURE ROOM AND PLACED IN THE PRONE POSITION. THE CERVICOTHORACIC AREA WAS CLEANED WITH CHLORAPREP SOLUTION AND DRAPED ASEPTICALLY. THE PROCEDURE WAS DONE UNDER STERILE CONDITIONS. I CHECKED LATERALITY AND THE LEVEL WHERE THE PROCEDURE WAS GOING TO BE PERFORMED WITH THE PATIENT AND THE SUPPORTING STAFF AT THE MOMENT OF THE TIME OUT IN THE PROCEDURE ROOM. UNDER FLUOROSCOPIC GUIDANCE, TARGET POINT WAS SELECTED AT THE LEFT C2-C3, LEFT C3-C4 AND LEFT C4-C5 CERVICAL FACET JOINT. TARGET POINTS WERE SELECTED AFTER LATERAL ROTATION AND TILT OF THE MAGNIFIER OF THE C-ARM. LIDOCAINE 0.5% WAS USED TO NUMB THE SKIN AND THE SUBCUTANEOUS TISSUE BELOW IT. SPINAL NEEDLES, 22-GAUGE, WERE ADVANCED UNDER FLUOROSCOPIC GUIDANCE AND FOLLOWING PATIENT FEEDBACK UNTIL THE TARGETS WERE TOUCHED. THE POSITION OF THE NEEDLES WAS VERIFIED WITH AP AND LATERAL VIEWS. AFTER PROPER POSITION OF THE NEEDLES WAS ACHIEVED, ISOVUE M DYE 30, 0.1 ML WAS INJECTED SHOWING SPREAD OF THE DYE. THEN A SOLUTION OF 0.9 ML OF BUPIVACAINE 0.125% AND KENALOG 10 MG WAS INJECTED AT EACH SITE. THERE WAS NO EVIDENCE OF BLOOD, PARESTHESIA OR CEREBROSPINAL FLUID DURING THE PROCEDURE. THE PATIENT WAS SENT TO THE RECOVERY ROOM. THE PATIENT WAS MOVING THE EXTREMITIES AND DOING WELL. THERE WAS NO COMPLICATION DURING THE PROCEDURE. FLUOROSCOPY TIME WAS 52 SECONDS POST PROCEDURE NOTE THE PATIENT WILL BE SEEN IN A FOLLOW UP IN THE NEXT FEW WEEKS. INSTRUCTIONS WERE GIVEN, QUESTIONS WERE ANSWERED, AND THE PATIENT EXPRESSED UNDERSTANDING AND AGREES WITH THE PLAN. I, LIZ SERRANO, DOCUMENTED THE ABOVE INFORMATION ACTING A SCRIBE FOR DR. ZELAYA. I HAVE REVIEWED THE ABOVE DOCUMENT, WRITTEN BY LIZ NAVARRO AND I VERIFY THAT IT IS ACCURATE DIAGNOSTIC IMAGING [facility] FACET BLOCK (PAIN)[id number] PROCEDURE CODES 36595 INJ PARAVERT F JNT C/T 1 LEV, MODIFIERS: [place] 54104 INJ PARAVERT F JNT C/T 2 LEV, [place]IF[place]: [place] 11239 INJ PARAVERT F JNT C/T 3 LEV, MODIFIERS: LT 6045F RADXPS IN END [id number] PXD DISPOSITION & COMMUNICATION FOLLOW UP 3 WEEKS ELECTRONICALLY SIGNED BY RIGO ZELAYA MD ON 07/17/2017 AT 12:14 PM EDT DISCLAIMER : THIS IS A VISIT SUMMARY EXTRACTED FROM THE [employer] CHART. IT IS NOT A COPY OF THE [employer] PROGRESS NOTE. MTDD
== END ==
LOC: M PAIN 11:15
PROVIDERS: ATTEND Anesthesiology
DX: G89.29 Other chronic pain (principal); M47.812 Spondylosis without myelopathy or radiculopathy, cervical region; E03.9 Hypothyroidism, unspecified; I10 Essential (primary) hypertension; M85.80 Other specified disorders of bone density and structure, unspecified site; M19.90 Unspecified osteoarthritis, unspecified site; Z88.8 Allergy status to other drugs, medicaments and biological substances; F11.20 Opioid dependence, uncomplicated; Z79.899 Other long term (current) drug therapy
CPT/HCPCS: 64490; 64491; 64492; J3301; Q9967

== ENCOUNTER → 2017-08-01 | Outpatient (CLI) | payer BC ==
[~2017-08-01] MED LIST changes: -BUPIVACAINE HCL 0.25% 30 ML VIAL As Ordered ONE; -ISOVUE-M 300 61% 15ML VIAL (Q9967) As Ordered ONE; -LIDOCAINE 1% SDV INJ 30 ML VIAL As Ordered ONE; -TRIAMCINOLONE ACETONIDE SUSP 40 MG/ML VIAL (J3301) As Ordered ONE; -diazePAM 5 MG TAB As Ordered ONE; -oxyCODONE 5MG TAB As Ordered ONE
--- NOTE | 2017-08-21 00:04 | ECWPNPC ---
PATIENT NAME: MORALES WHITTINGTON : 1950 GENDER: FEMALE VISIT DATE: 08/01/2017 DISCHARGE DATE: 08/01/17 1044 VISIT LOCKED DATE TIME: PHYSICIAN: JYOTI JONES RESOURCE: JYOTI JONES REASON FOR APPOINTMENT 1. MEDS HISTORY OF PRESENT ILLNESS HISTORY OF PRESENT ILLNESS: HERE FOR F/U OF CHRONIC NECK AND UPPER BACK PAIN.HAS BEEN WEANING DOWN AND OFF METHADONE.CURRENTLY USING METHADONE 5MG BID AND HYDROCODONE 7.5/325 PRN FOR BREAKTHROUGH PAIN.RATING PAIN VAS 4/10.HAVING SOME WITHDRAWAL SYMPTOMS.OVERALL FEELS BRIGHTER AND MORE ENERGETIC WITHOUT METHADONE.WEEPY DURING VISIT WITH FEARS OF SEVERE DEPRESSION ASSOCIATED WITH INCREASED PAIN OFF METHADONE.DISCUSSED MEDICATION AND TREATMENT OPTIONS. PAIN THE PATIENT DESCRIBES THE PAIN... FALL RISK SCREENING: SCREENING :NO FALLS IN THE PAST YEAR CURRENT MEDICATIONS TAKING LEVOTHYROXINE SODIUM 75 MCG CAPSULE ORALLY DAILY TAKING AMITRIPTYLINE HCL 50 MG TABLET ORALLY DAILY @ BEDTIME TAKING OXYBUTYNIN CHLORIDE 1 TAB ORALLY DAILY TAKING LISINOPRIL 20 MG TABLET 1 TABLET ORALLY ONCE A DAY TAKING VOLTAREN 1 % GEL ONE APPLICATION EXTERNALLY 2GM TO AFFECTED AREA TID NECK PRN TAKING ACETAMINOPHEN EXTRA STRENGTH 500 MG TABLET 2 TABLETS NEEDED ORALLY EVERY 6 HRS TAKING METHADONE HCL 5 MG TABLET 1 TABLET ORALLY EVERY 12 HRS TAKING NORCO 7.5-325 MG TABLET 1 TABLET NEEDED ORALLY Q6H PRN MDD4 TAKING CLONIDINE HCL 0.1 MG TABLET 1 TABLET AT BEDTIME ORALLY Q8H PRN TAKING XANAX 0.25 MG TABLET 1 TABLET ORALLY TWICE A DAY TAKING COLACE 100 MG CAPSULE 1 CAPSULE NEEDED ORALLY BID NOT-TAKING DULCOLAX BALANCE - POWDER 1 PACKET ORALLY DAILY NOT-TAKING ADVIL MIGRAINE 200 MG CAPSULE 2 CAPSULE NEEDED ORALLY EVERY 6 HRS NEEDED NOT-TAKING FIORICET/CODEINE [id number] MG CAPSULE 1 CAPSULE NEEDED ORALLY EVERY 4 HRS PRN PAIN MDD2 NOT-TAKING IBUPROFEN 200 MG TABLET 2 TABLETS ORALLY EVERY 6 HRS PRN, NOTES: NONE NOT-TAKING FIORICET/CODEINE [id number] MG CAPSULE 1 CAPSULE NEEDED ORALLY EVERY 8H PRN MDD3 MEDICATION LIST REVIEWED AND RECONCILED WITH THE PATIENT PAST MEDICAL HISTORY HYPOTHYROIDISM HYPERTENSION OSTEOPENIA ARTHRITIS ULCERS IN COLON AND STOMACH ALLERGIES CYMBALTA: TONGUE AND LIP SWELLING: ALLERGY SURGICAL HISTORY BACK SURGERY NECK SURGERY TUBAL LIGATION COMPLETE HYSTERECTOMY SOCIAL HISTORY GENERAL: TOBACCO USE ARE YOU A:NONSMOKER ALCOHOL SCREENING DID YOU HAVE A DRINK CONTAINING ALCOHOL IN THE PAST YEAR?YES HOW OFTEN DID YOU HAVE A DRINK CONTAINING ALCOHOL IN THE PAST YEAR?MONTHLY OR LESS (1 POINT) HOW MANY DRINKS DID YOU HAVE ON A TYPICAL DAY WHEN YOU WERE DRINKING IN THE PAST YEAR?1 OR 2 (0 POINTS) HOW OFTEN DID YOU HAVE SIX OR MORE DRINKS ON ONE OCCASION IN THE PAST YEAR?NEVER (0 POINTS) POINTS1 INTERPRETATIONNEGATIVE RECREATIONAL DRUG USE DRUG USE?NO ANABAP[employer]IST [id number] NONE LANGUAGE LANGUAGES SPOKEN:[place] LEARNING BARRIERS / SPECIAL NEEDS BARRIERS TO LEARNING?NO HEARING IMPAIRED?NO VISION IMPAIRED?YES CONTACTS COGNITIVELY IMPAIRED?NO READINESS TO LEARN?YES LEARNING PREFERENCES?NO LEARNING CAPABILITIES PRESENT?YES EMOTIONAL BARRIERS?NO SPECIAL DEVICES?NO PLANNING ADVISOR NEEDED?NO PAIN CLINIC PFS, CLERGY, PUBLIC HEALTH REFERRALS PFS REFERRAL NEEDED?NO CLERGY REFERRAL NEEDED?NO PUBLIC HEALTH REFERRAL NEEDED?NO WAS THE PROVIDER NOTIFIED OF ANY PERTINENT INFO?NO HAS THE PATIENT BEEN EDUCATED REGARDING HIS/HER PLAN OF CARE?YES HAS THE PATIENT BEEN EDUCATED REGARDING PAIN, THE RISK FOR PAIN, THE IMPORTANCE OF EFFECTIVE PAIN MANAGEMENT, AND THE PAIN ASSESSMENT PROCESS?YES PATIENT: ____. ADVANCE DIRECTIVES HEALTH CARE PROXY?NO WOULD YOU LIKE MORE INFORMATION?NO DO YOU HAVE A DNR?NO WOULD YOU LIKE MORE INFORMATION?NO LIVING WILL?NO WOULD YOU LIKE MORE INFORMATION?NO POWER OF SPECIAL EDUCATION SUPERVISOR?NO WOULD YOU LIKE MORE INFORMATION?NO HOSPITALIZATION/MAJOR DIAGNOSTIC PROCEDURE CONSTIPATION FROM MEDICATIONS 2014 INTESTINAL BLEEDING 07/2015 REVIEW OF SYSTEMS REVIEWED BY: PROVIDER: JYOTI MCGOWAN . CONSTITUTIONAL: ANY CHANGE IN YOUR MEDICAL CONDITION? NO . CHILLS NO . FEVER NO . INFECTION: DO YOU HAVE NEW INFECTIONS? NO . DO YOU HAVE HISTORY OF MRSA? NO . MUSCULOSKELETAL: ANY NEW PATTERNS OF PAIN OR NUMBNESS? NO . GASTROENTEROLOGY: ANY NEW CHANGE IN BOWEL CONTROL? NO . GENITOURINARY: ANY NEW CHANGE IN BLADDER CONTROL? NO . IS THERE A CHANCE YOU COULD BE ? NO . HEMATOLOGY/LYMPH: DO YOU TAKE ANY BLOOD THINNERS? (FOR EXAMPLE- COUMADIN, PLAVIX, AGGRENOX, PLATEL, PRADAXA, OR XARELTO) NO . WHEN WAS YOUR LAST DOSE? DATE: TIME: . NEUROLOGY: HAVE YOU FALLEN IN THE PAST 6 MONTHS? NO . ANY NEW EXTREMITY NUMBNESS OR WEAKNESS? NO . CARDIOLOGY: DO YOU HAVE A PACEMAKER OR DEFIBRILLATOR? NO . RESPIRATORY: HAVE YOU BEEN SICK IN THE PAST WEEK? NO . FEVER NO . FLU LIKE SYMPTOMS? NO . COUGH NO . INTEGUMENTARY: DO YOU HAVE ANY RASHES OR OPEN SORES? NO . ALLERGIC/IMMUNO: ARE YOU ALLERGIC TO SHELLFISH OR IV DYE? NO . ANY NEW ALLERGIES? NO . PSYCHIATRIC: DO YOU HAVE THOUGHTS OF HURTING YOURSELF OR SOMEONE ELSE? NO . ARE YOU ABUSED, NEGLECTED, OR IN AN UNSAFE ENVIRONMENT? NO . ENDOCRINOLOGY: ARE YOU DIABETIC? NO . OTHER: DO YOU NEED ANY PRESCRIPTIONS? NO . IF YES, PLEASE LIST: ____ . ANY NEW PROBLEMS WITH YOUR MEDICATIONS? NO . WHEN DID YOU LAST EAT? ____ . WHEN DID YOU LAST DRINK? ____ . WHAT DID YOU LAST DRINK? ____ . NAME OF PERSON DRIVING YOU HOME? ____ . DO YOU HAVE ANY OTHER QUESTIONS OR CONCERNS NO . VITAL SIGNS WT 189.2 LBS, HT 62 IN, BMI 34.60 INDEX, BP 138//62, HR 67 /MIN, RR 18 /MIN, TEMP 97.3 F, OXYGEN SAT % 98%, NA INITIALS TL 0946, REVIEWED BY: GAURAV. EXAMINATION GENERAL EXAMINATION: LUNGS:LUNG SOUNDS ARE CLEAR. HEART:HEART RATE REGULAR. MUSCULOSKELETAL:*,PAIN ELICITED WITH PALPATION OVER CERVICAL SPINOUS PROCESSES AND ACROSS THE TRAPEZIUS MUSCLES BILATERALLY L>R. SPECIFIC TRIGGER POINT NOTED OVER LEFT RHOMBOID/MID THORACIC. DIAGNOSTIC DATA:REVIEWED CT SCAN OF CERVICAL SPINE 2011-MODERATE DEGENRATIVE CHANGES. ASSESSMENTS POST LAMINECTOMY SYNDROME - M96.1 (PRIMARY) MYALGIA - M79.1 CHRONIC PRESCRIPTION OPIATE USE - Z79.891 TREATMENT POST LAMINECTOMY SYNDROME STOP METHADONE HCL TABLET, 5 MG, 1 TABLET, ORALLY, EVERY 12 HRS CONTINUE NORCO TABLET, 7.5-325 MG, 1 TABLET NEEDED, ORALLY, Q6H PRN MDD4 START OXYCODONE HCL ER TABLET ER 12 HOUR ABUSE-DETERRENT, 10 MG, 1 TABLET, ORALLY, EVERY 12 HRS MDD2, 30 DAY(S), 60, REFILLS 0 NOTES: TPI LEFT MID THORACIC/RHOMBOIDDECREASE AND DISCONTINUE METHADONE.TAKE ONE METHADONE IN AM AND ONE OXYCONTIN 10MG AT NIGHT FOR 5 DAYS.THEN STOP METHADONE AND USE OXYCONTIN 10MG AM AND PM.CONTINUE HYDROCODONE NEEDED FOR SEVERE INCREASES IN PAIN., ISTOP REGISTRY REVIEWED [id number] AND DEMNOSTRATES COMPLLIANCE. BRINGS IN MEDICATIONS WHICH IS APPROPRIATE FOR WHAT WAS DISPENSED. RECENT URINE TOXICOLOGY REVIEWED. NO UNAUTHORIZED MEDICATIONS. NO ILLICIT SUBSTANCES AND PRESCRIBED MEDICATIONS WERE PRESENT. , RISKS AND BENEFITS OF NARCOTIC/OPIOD MEDICATIONS WERE REVIEWED WITH PATIENT - THIS INCLUDES BUT IS NOT LIMITED TO RISK OF DEPENDANCE/DEVELOPMENT OF ADDICTION, MOOD DISTURBANCE AND DEPRESSION, OSTEOPOROSIS, HORMONAL AND LABIDAL CHANGES, RESPIRATORY DEPRESSION AND . PATIENT IS ADVISED NOT TO DRIVE WHILE ON THESE MEDICATIONS. PREVENTIVE MEDICINE PAIN CLINIC TEACHING: PROCEDURE TEACHING PRE TRIGGER POINT INJECTION INSTRUCTIONS REVIEWED WITH PT. VERBALIZED UNDERSTANDING.. PROCEDURE CODES FA211 ESTABILISHED PATIENT [facility] CHARGE DISPOSITION & COMMUNICATION FOLLOW UP 2 WEEKS (REASON: TPI LEFT MID THORACIC/RHOMBOID) ELECTRONICALLY SIGNED BY JUAN M JOHNS ON 08/20/2017 AT 02:54 PM EST DISCLAIMER : THIS IS A VISIT SUMMARY EXTRACTED FROM THE [employer] CHART. IT IS NOT A COPY OF THE [employer] PROGRESS NOTE. SINDY
== END ==
LOC: M PAIN 09:45
PROVIDERS: ATTEND Nurse Practitioner Family
DX: M96.1 Postlaminectomy syndrome, not elsewhere classified (principal); M79.1 Myalgia; G89.29 Other chronic pain; I10 Essential (primary) hypertension; E03.9 Hypothyroidism, unspecified; Z79.891 Long term (current) use of opiate analgesic; Z79.899 Other long term (current) drug therapy; Z88.8 Allergy status to other drugs, medicaments and biological substances

== ENCOUNTER → 2017-08-14 | Outpatient (CLI) | payer BC ==
[~2017-08-14] MED LIST changes: +BUPIVACAINE HCL 0.25% 10 ML VIAL As Ordered ONE; +BUPIVACAINE HCL 0.25% 30 ML VIAL As Ordered ONE; +TRIAMCINOLONE ACETONIDE SUSP 40 MG/ML VIAL (J3301) As Ordered ONE
--- NOTE | 2017-08-14 16:59 | REP ---
Clinical: Post procedure. Rule out pneumothorax. Comparison: 02/06/2012. Technique: PA and lateral. Findings: The mediastinum and cardiac silhouette are normal. The lung baeza are clear and without acute consolidation, effusion, or pneumothorax. The skeletal structures are intact and normal. Stimulator extends to the epidural space in the cervical region. Impression: 1. No acute cardiopulmonary process. Signed by Víctor Benson MD 08/14/2017 04:50 P
--- NOTE | 2017-08-29 02:18 | ECWPNPC ---
PATIENT NAME: MORALES WHITTINGTON : 1950 GENDER: FEMALE VISIT DATE: 08/14/2017 DISCHARGE DATE: 08/14/17 1700 VISIT LOCKED DATE TIME: PHYSICIAN: RIGO ZELAYA RESOURCE: RIGO ZELAYA REASON FOR APPOINTMENT 1. TPI HISTORY OF PRESENT ILLNESS HISTORY OF PRESENT ILLNESS: PAIN THE PATIENT DESCRIBES THE PAIN... FALL RISK SCREENING: SCREENING :NO FALLS IN THE PAST YEAR CURRENT MEDICATIONS TAKING LEVOTHYROXINE SODIUM 75 MCG CAPSULE ORALLY DAILY, NOTES: 08-14-17 08 TAKING AMITRIPTYLINE HCL 50 MG TABLET ORALLY DAILY @ BEDTIME, NOTES: 08-13-172099 TAKING OXYBUTYNIN CHLORIDE 1 TAB ORALLY DAILY, NOTES: 08-13-172099 TAKING LISINOPRIL 20 MG TABLET 1 TABLET ORALLY ONCE A DAY, NOTES: 08-14-17799 TAKING VOLTAREN 1 % GEL ONE APPLICATION EXTERNALLY 2GM TO AFFECTED AREA TID NECK PRN, NOTES: 08-14-172099 TAKING ACETAMINOPHEN EXTRA STRENGTH 500 MG TABLET 2 TABLETS NEEDED ORALLY EVERY 6 HRS, NOTES: A COUPLE DAYS AG0 TAKING XANAX 0.25 MG TABLET 1 TABLET ORALLY TWICE A DAY, NOTES: 08-14-172099 TAKING COLACE 100 MG CAPSULE 1 CAPSULE NEEDED ORALLY BID, NOTES: 08-14-17 08 TAKING NORCO 7.5-325 MG TABLET 1 TABLET NEEDED ORALLY Q6H PRN MDD4, NOTES: 08-14-17 07 TAKING OXYCODONE HCL 15 MG TABLET 1 TAB ORALLY BID MDD2, NOTES: 08-14-17 06 TAKING CIPROFLOXACIN HCL 250 MG TABLET 1 TABLET ORALLY EVERY 12 HRS NOT-TAKING CLONIDINE HCL 0.1 MG TABLET 1 TABLET AT BEDTIME ORALLY Q8H PRN NOT-TAKING OXYCODONE HCL ER 10 MG TABLET ER 12 HOUR ABUSE-DETERRENT 1 TABLET ORALLY EVERY 12 HRS MDD2, NOTES: 08-14-17 0600 NOT-TAKING OXYCODONE HCL ER 10 MG TABLET ER 12 HOUR ABUSE-DETERRENT 1 TABLET ORALLY EVERY 12 HRS MDD2 NOT-TAKING CLONIDINE HCL 0.1 MG TABLET 1 TABLET AT BEDTIME ORALLY TID UNKNOWN DULCOLAX BALANCE - POWDER 1 PACKET ORALLY DAILY UNKNOWN ADVIL MIGRAINE 200 MG CAPSULE 2 CAPSULE NEEDED ORALLY EVERY 6 HRS NEEDED UNKNOWN FIORICET/CODEINE [id number] MG CAPSULE 1 CAPSULE NEEDED ORALLY EVERY 4 HRS PRN PAIN MDD2 UNKNOWN IBUPROFEN 200 MG TABLET 2 TABLETS ORALLY EVERY 6 HRS PRN, NOTES: NONE UNKNOWN FIORICET/CODEINE [id number] MG CAPSULE 1 CAPSULE NEEDED ORALLY EVERY 8H PRN MDD3 MEDICATION LIST REVIEWED AND RECONCILED WITH THE PATIENT PAST MEDICAL HISTORY HYPOTHYROIDISM HYPERTENSION OSTEOPENIA ARTHRITIS ULCERS IN COLON AND STOMACH ALLERGIES CYMBALTA: TONGUE AND LIP SWELLING: ALLERGY REVIEW OF SYSTEMS REVIEWED BY: PROVIDER: . CONSTITUTIONAL: ANY CHANGE IN YOUR MEDICAL CONDITION? NO . CHILLS NO . FEVER NO . INFECTION: DO YOU HAVE NEW INFECTIONS? NO . DO YOU HAVE HISTORY OF MRSA? NO . MUSCULOSKELETAL: ANY NEW PATTERNS OF PAIN OR NUMBNESS? NO . GASTROENTEROLOGY: ANY NEW CHANGE IN BOWEL CONTROL? NO . GENITOURINARY: ANY NEW CHANGE IN BLADDER CONTROL? NO . IS THERE A CHANCE YOU COULD BE ? NO . HEMATOLOGY/LYMPH: DO YOU TAKE ANY BLOOD THINNERS? (FOR EXAMPLE- COUMADIN, PLAVIX, AGGRENOX, PLATEL, PRADAXA, OR XARELTO) NO . WHEN WAS YOUR LAST DOSE? DATE: TIME: . NEUROLOGY: HAVE YOU FALLEN IN THE PAST 6 MONTHS? NO . ANY NEW EXTREMITY NUMBNESS OR WEAKNESS? NO . CARDIOLOGY: DO YOU HAVE A PACEMAKER OR DEFIBRILLATOR? NO . RESPIRATORY: HAVE YOU BEEN SICK IN THE PAST WEEK? NO . FEVER NO . FLU LIKE SYMPTOMS? NO . COUGH NO . INTEGUMENTARY: DO YOU HAVE ANY RASHES OR OPEN SORES? NO . ALLERGIC/IMMUNO: ARE YOU ALLERGIC TO SHELLFISH OR IV DYE? NO . ANY NEW ALLERGIES? NO . PSYCHIATRIC: DO YOU HAVE THOUGHTS OF HURTING YOURSELF OR SOMEONE ELSE? NO . ARE YOU ABUSED, NEGLECTED, OR IN AN UNSAFE ENVIRONMENT? NO . ENDOCRINOLOGY: ARE YOU DIABETIC? NO . OTHER: DO YOU NEED ANY PRESCRIPTIONS? NO . IF YES, PLEASE LIST: ____ . ANY NEW PROBLEMS WITH YOUR MEDICATIONS? NO . WHEN DID YOU LAST EAT? 0700 . WHEN DID YOU LAST DRINK? 0830 . WHAT DID YOU LAST DRINK? WATER . NAME OF PERSON DRIVING YOU HOME? ERIN . DO YOU HAVE ANY OTHER QUESTIONS OR CONCERNS NO . VITAL SIGNS WT 189.0 LBS, HT 62 IN, BMI 34.56 INDEX, BP 156/80 MM HG, HR 79 /MIN, RR 16 /MIN, TEMP 97.8 F, OXYGEN SAT % 97%, NA INITIALS TL 1332, REVIEWED BY: LS. ASSESSMENTS MYALGIA - M79.1 (PRIMARY) PROCEDURES PN TRIGGER POINT INJECTION WITH STEROIDS PRE PROCEDURE DIAGNOSIS 1. MYALGIA 2. PAIN AT LEFT THORACIC AREA POST PROCEDURE DIAGNOSIS 1. MYALGIA 2. PAIN AT LEFT THORACIC AREA PROCEDURE TRIGGER POINT INJECTION AT LEFT THORACIC AREA SURGEON DR. RIGO ZELAYA DRUM ATTENDANT NONE ANESTHESIA LOCAL PRE PROCEDURE NOTE THE PATIENT HAS A HISTORY OF CHRONIC PAIN AT THE LEFT THORACIC AREA. I EVALUATE THE PATIENT AND REVIEWED THE CHART. THERE IS EVIDENCE OF BANDS OF TISSUE WITH RESTRICTION OF MOVEMENT AND PRESENCE OF TRIGGER POINT AT THE AFFECTED AREA. I WENT OVER THE RISKS, ALTERNATIVES, AND BENEFITS ASSOCIATED WITH THIS PROCEDURE. THE PATIENT WOULD LIKE TO PROCEED AND GIVE CONSENT TO PERFORMED THE PROCEDURE. THE PATIENT DENIES UNEXPLAINABLE WEIGHT LOSS, FEVER, CHILLS, OR NEW CHANGES IN URINARY OR BOWEL CONTROL DESCRIPTION OF PROCEDURE THE PATIENT WAS BROUGHT TO THE PROCEDURE ROOM AND PLACED IN THE SITTING POSITION. THE AREA WAS CLEANED WITH ALCOHOL. THE PROCEDURE WAS DONE USING ASEPTIC STERILE TECHNIQUE. I CHECKED LATERALITY AND THE LEVEL WHERE THE PROCEDURE WAS GOING TO BE PERFORMED WITH THE PATIENT AND THE SUPPORTING STAFF AT THE MOMENT OF THE TIME OUT IN THE PROCEDURE ROOM. USING A 25-GAUGE NEEDLE, TRIGGER POINTS WERE INJECTED AT THE LEFT THORACIC AREA WITH A TOTAL OF 40 ML OF BUPIVACAINE 0.25% AND KENALOG 40 MG. THERE WAS NO EVIDENCE OF BLOOD, PARESTHESIA OR CEREBROSPINAL FLUID DURING THE PROCEDURE. THE PATIENT WAS SENT TO THE RECOVERY ROOM. THE PATIENT WAS MOVING THE EXTREMITIES AND DOING WELL. THERE WAS NO COMPLICATION DURING THE PROCEDURE POST PROCEDURE NOTE THE PATIENT WILL BE SEEN IN A FOLLOW UP IN THE NEXT FEW WEEKS. INSTRUCTIONS WERE GIVEN, QUESTIONS WERE ANSWERED, AND THE PATIENT EXPRESSED UNDERSTANDING AND AGREES WITH THE PLAN. I, LIZ SERRANO, DOCUMENTED THE ABOVE INFORMATION ACTING A SCRIBE FOR DR. ZELAYA. I HAVE REVIEWED THE ABOVE DOCUMENT, WRITTEN BY LIZ NAVARRO AND I VERIFY THAT IT IS ACCURATE PROCEDURE CODES 98965 INJ TRIGGER POINT 10/03 [facility] [place] [facility] [place] FOLLOW UP 3 WEEKS ELECTRONICALLY SIGNED BY RIGO ZELAYA MD ON 08/28/2017 AT 11:06 AM EST DISCLAIMER : THIS IS A VISIT SUMMARY EXTRACTED FROM THE [employer] CHART. IT IS NOT A COPY OF THE [employer] PROGRESS NOTE. [facility]
== END ==
LOC: M PAIN 13:45
PROVIDERS: ATTEND Anesthesiology
DX: G89.29 Other chronic pain (principal); M79.1 Myalgia; E03.9 Hypothyroidism, unspecified; I10 Essential (primary) hypertension; M85.80 Other specified disorders of bone density and structure, unspecified site; M19.90 Unspecified osteoarthritis, unspecified site; Z88.8 Allergy status to other drugs, medicaments and biological substances; Z79.891 Long term (current) use of opiate analgesic; Z79.899 Other long term (current) drug therapy
CPT/HCPCS: 20552; 71020; J3301

== ENCOUNTER → 2017-08-28 | Outpatient (CLI) | payer BC ==
[~2017-08-28] MED LIST changes: -BUPIVACAINE HCL 0.25% 10 ML VIAL As Ordered ONE; -BUPIVACAINE HCL 0.25% 30 ML VIAL As Ordered ONE; -TRIAMCINOLONE ACETONIDE SUSP 40 MG/ML VIAL (J3301) As Ordered ONE
== END ==
LOC: M PAIN 09:45
PROVIDERS: ATTEND Nurse Practitioner Family
DX: M96.1 Postlaminectomy syndrome, not elsewhere classified (principal); M79.1 Myalgia; E03.9 Hypothyroidism, unspecified; I10 Essential (primary) hypertension; R51 Headache; Z79.891 Long term (current) use of opiate analgesic; Z79.899 Other long term (current) drug therapy; Z88.8 Allergy status to other drugs, medicaments and biological substances

== ENCOUNTER → 2017-09-13 | Outpatient (CLI) | payer BC ==
[~2017-09-13] MED LIST changes: -/LOR25TA PO; -ACET500C PO; -ACET50TA PO; -ALEV220C2 PO; -ALEV220T26 PO; -AMIT10TA PO; -AMIT10TA2 PO; -AMIT50TA PO; -AMIT50TA4 PO; -BENA25TA4 PO; +BUPIVACAINE HCL 0.25% 30 ML VIAL As Ordered; -CYCL5TA PO; -CYMB1CAP PO; -FIORTAB PO; -FLEXERIL PO; -GABA300C2 PO; -GEMF600T PO; -GRALISE PO; -HYDR-3716 PO; -IBUP400T OR; +ISOVUE-M 300 61% 15ML VIAL (Q9967) As Ordered; -LEVO75TA2 PO; +LIDOCAINE 1% SDV INJ 30 ML VIAL As Ordered; -LISI5TAB PO; -MELOPOW PO; -METH5TAB2 PO; -OMEP20TA7 PO; -OXYB5TAB5 PO; -SIMV40TA2 PO; -SOMA350T PO; -TOPA100T PO; -TOPA100T12 PO; -TOPI100T OR; -TPS CREAM TOP; -TRAZ50TA2 PO; +TRIAMCINOLONE ACETONIDE SUSP 40 MG/ML VIAL (J3301) As Ordered; -VOLT1GEL2 TD; -ZEBE5TAB OR; -[UNRECOGNIZED DRUG - CODE] TOP; -combination cream TOP; -flexeril PO
== END ==
LOC: M PAIN 10:30
DX: G89.29 Other chronic pain (principal); M47.812 Spondylosis without myelopathy or radiculopathy, cervical region; E03.9 Hypothyroidism, unspecified; I10 Essential (primary) hypertension; M85.80 Other specified disorders of bone density and structure, unspecified site; M19.90 Unspecified osteoarthritis, unspecified site; K25.9 Gastric ulcer, unspecified as acute or chronic, without hemorrhage or perforation; Z88.8 Allergy status to other drugs, medicaments and biological substances; Z79.891 Long term (current) use of opiate analgesic; Z79.899 Other long term (current) drug therapy
CPT/HCPCS: J3301

== ENCOUNTER → 2017-09-27 | Outpatient (CLI) | payer BC | LOC: M PAIN 09:45 | DX: M96.1 Postlaminectomy syndrome, not elsewhere classified (principal); M47.22 Other spondylosis with radiculopathy, cervical region; E03.9 Hypothyroidism, unspecified; I10 Essential (primary) hypertension; Z88.8 Allergy status to other drugs, medicaments and biological substances; Z79.1 Long term (current) use of non-steroidal anti-inflammatories (NSAID); Z79.891 Long term (current) use of opiate analgesic; Z79.899 Other long term (current) drug therapy | CPT/HCPCS: G0463 ==

== ENCOUNTER → 2017-11-28 | Outpatient (CLI) | payer BC | LOC: M PAIN 13:45 | DX: M96.1 Postlaminectomy syndrome, not elsewhere classified (principal); M47.22 Other spondylosis with radiculopathy, cervical region; G43.709 Chronic migraine without aura, not intractable, without status migrainosus; I10 Essential (primary) hypertension; E03.9 Hypothyroidism, unspecified; Z79.891 Long term (current) use of opiate analgesic; Z79.899 Other long term (current) drug therapy; Z88.8 Allergy status to other drugs, medicaments and biological substances | CPT/HCPCS: G0463 ==

== ENCOUNTER → 2017-12-27 | Outpatient (CLI) | payer BC ==
[~2017-12-27] MED LIST changes: +BUPIVACAINE HCL 0.25% 10 ML VIAL As Ordered; -ISOVUE-M 300 61% 15ML VIAL (Q9967) As Ordered; -LIDOCAINE 1% SDV INJ 30 ML VIAL As Ordered; +diazePAM 5 MG TAB As Ordered; +oxyCODONE 5MG TAB As Ordered
== END ==
LOC: M PAIN 10:45
DX: G89.29 Other chronic pain (principal); M79.1 Myalgia; M54.2 Cervicalgia; M25.512 Pain in left shoulder; M54.6 Pain in thoracic spine; E03.9 Hypothyroidism, unspecified; I10 Essential (primary) hypertension; M81.8 Other osteoporosis without current pathological fracture; M19.91 Primary osteoarthritis, unspecified site; Z79.899 Other long term (current) drug therapy; Z88.8 Allergy status to other drugs, medicaments and biological substances
CPT/HCPCS: J3301

== ENCOUNTER → 2018-03-06 | Outpatient (CLI) | payer BC | LOC: M PAIN 14:45 | DX: M96.1 Postlaminectomy syndrome, not elsewhere classified (principal); E03.9 Hypothyroidism, unspecified; I10 Essential (primary) hypertension; M19.90 Unspecified osteoarthritis, unspecified site; M85.80 Other specified disorders of bone density and structure, unspecified site; Z79.891 Long term (current) use of opiate analgesic; Z79.899 Other long term (current) drug therapy; Z88.8 Allergy status to other drugs, medicaments and biological substances | CPT/HCPCS: G0463 ==

== ENCOUNTER → 2018-04-09 | Outpatient (CLI) | payer BC | LOC: M PAIN 14:30 | DX: G89.29 Other chronic pain (principal); M79.1 Myalgia; M54.2 Cervicalgia; E03.9 Hypothyroidism, unspecified; I10 Essential (primary) hypertension; M19.90 Unspecified osteoarthritis, unspecified site; M85.80 Other specified disorders of bone density and structure, unspecified site; F11.20 Opioid dependence, uncomplicated; Z79.891 Long term (current) use of opiate analgesic; Z79.899 Other long term (current) drug therapy; Z88.8 Allergy status to other drugs, medicaments and biological substances | CPT/HCPCS: J3301 ==

== ENCOUNTER → 2018-05-11 | Outpatient (CLI) | payer BC | LOC: M PAIN 11:15 | DX: M96.1 Postlaminectomy syndrome, not elsewhere classified (principal); Z79.891 Long term (current) use of opiate analgesic; E03.9 Hypothyroidism, unspecified; I10 Essential (primary) hypertension; M85.80 Other specified disorders of bone density and structure, unspecified site; M19.90 Unspecified osteoarthritis, unspecified site; K25.9 Gastric ulcer, unspecified as acute or chronic, without hemorrhage or perforation; Z79.899 Other long term (current) drug therapy; Z88.8 Allergy status to other drugs, medicaments and biological substances | CPT/HCPCS: G0463 ==

== ENCOUNTER → 2018-06-25 | Outpatient (CLI) | payer BC | LOC: M PAIN 11:30 | DX: G89.29 Other chronic pain (principal); M54.6 Pain in thoracic spine; M79.1 Myalgia; E03.9 Hypothyroidism, unspecified; I10 Essential (primary) hypertension; M85.80 Other specified disorders of bone density and structure, unspecified site; M19.90 Unspecified osteoarthritis, unspecified site; K25.9 Gastric ulcer, unspecified as acute or chronic, without hemorrhage or perforation; Z79.891 Long term (current) use of opiate analgesic; Z79.899 Other long term (current) drug therapy; Z88.8 Allergy status to other drugs, medicaments and biological substances | CPT/HCPCS: G0463 ==

== ENCOUNTER → 2018-07-10 | Outpatient (CLI) | payer BC | LOC: M PAIN 14:15 | DX: M79.10 Myalgia, unspecified site (principal); M25.511 Pain in right shoulder; M25.512 Pain in left shoulder; M54.6 Pain in thoracic spine; E03.9 Hypothyroidism, unspecified; I10 Essential (primary) hypertension; M19.90 Unspecified osteoarthritis, unspecified site; F10.20 Alcohol dependence, uncomplicated; Z79.891 Long term (current) use of opiate analgesic; Z79.899 Other long term (current) drug therapy; Z88.8 Allergy status to other drugs, medicaments and biological substances | CPT/HCPCS: J3301 ==

== ENCOUNTER → 2018-07-18 | Outpatient (CLI) | payer MEDICARE | LOC: M RAD 13:36 | DX: M54.6 Pain in thoracic spine (principal) | CPT/HCPCS: 72128 ==

== ENCOUNTER → 2018-07-24 | Outpatient (CLI) | payer MEDICARE | LOC: M PAIN 13:30 | DX: G89.29 Other chronic pain (principal); M54.6 Pain in thoracic spine; M79.18 Myalgia, other site; E03.9 Hypothyroidism, unspecified; I10 Essential (primary) hypertension; M85.80 Other specified disorders of bone density and structure, unspecified site; M19.90 Unspecified osteoarthritis, unspecified site; K25.9 Gastric ulcer, unspecified as acute or chronic, without hemorrhage or perforation; K63.3 Ulcer of intestine; Z79.899 Other long term (current) drug therapy; Z79.891 Long term (current) use of opiate analgesic; Z88.8 Allergy status to other drugs, medicaments and biological substances | CPT/HCPCS: G0463 ==

== ENCOUNTER 2024-09-21 10:06 | Emergency (ER) | payer MEDICARE ==
[~2024-09-21] VITALS: Ht 157.5 cm; Wt 71.6 kg
[~2024-09-21 10:06] MED LIST changes: +/LOR25TA PO; +ACET500C PO; +ALEV220C2 PO; +ALEV220T26 PO; +AMIT10TA2 PO; +AMIT10TA7 PO; +AMIT50TA PO; +AMIT50TA4 PO; +BENA25TA4 PO; -BUPIVACAINE HCL 0.25% 10 ML VIAL As Ordered; -BUPIVACAINE HCL 0.25% 30 ML VIAL As Ordered; +CYCL5TAB5 PO; +CYMB1CAP PO; +FIORTAB PO; +FLEXERIL PO; +GABA300C2 PO; +GEMF600T PO; +GRALISE PO; +HYDR-3716 PO; +IBUP400T OR; +LEVO75TA2 PO; +LISI5TAB PO; +MAPA500T17 PO; +MELOPOW PO; +METH5TAB2 PO; +OMEP20TA7 PO; +OXYB5TAB5 PO; +SIMV40TA20 PO; +SOMA350T PO; +TOPA100T PO; +TOPA100T12 PO; +TOPI100T OR; +TPS CREAM TOP; +TRAZ50TA2 PO; -TRIAMCINOLONE ACETONIDE SUSP 40 MG/ML VIAL (J3301) As Ordered; +VOLT1GEL2 TD; +ZEBE5TAB OR; +[UNRECOGNIZED DRUG - CODE] TOP; +combination cream TOP; -diazePAM 5 MG TAB As Ordered; +flexeril PO; -oxyCODONE 5MG TAB As Ordered
[2024-09-21 10:09] VITALS: BP 142/69; TEMP 98.8; O2SAT 96
[2024-09-21 12:01] LABS: BASO % 0.3 % (0.0-1.0); EOS # 0.1 10^3/uL (0.0-0.5); EOS % 1.1 % (0.0-3.0); HEMATOCRIT 37.4 % (36.0-47.0); HEMOGLOBIN 12.6 g/dl (12.0-15.5); LYMPH # 2.4 10^3/uL (1.5-5.0); LYMPH % 23.7 % (24.0-44.0); MEAN CORPUSCULAR HEMOGLOBIN 30.9 pg (27.0-33.0); MEAN CORPUSCULAR HGB CONC 33.7 g/dl (32.0-36.5); MEAN CORPUSCULAR VOLUME 91.7 fl (80.0-96.0); MONO # 0.8 10^3/uL (0.0-0.8); MONO % 7.5 % (2.0-8.0); NEUTROPHILS # 6.7 10^3/uL (1.5-8.5); NEUTROPHILS % 67.1 % (36.0-66.0); PLATELET COUNT, AUTOMATED 218 10^3/uL (150-450); RED BLOOD COUNT 4.08 10^6/uL (4.00-5.40)
[2024-09-21 12:21] LABS: ALBUMIN 3.5 G/DL (3.2-5.2); ALKALINE PHOSPHATASE 74 U/L (35-104); ALT/SGPT 58 U/L (7.0-40); AST/SGOT 49 U/L (<34); BILIRUBIN,TOTAL 1.2 MG/DL (0.3-1.2); BLOOD UREA NITROGEN 20 MG/DL (9-23); CALCIUM LEVEL 9.8 MG/DL (8.3-10.6); CARBON DIOXIDE LEVEL 26 MMOL/L (20-31); CHLORIDE LEVEL 108 MMOL/L (98-107); CREATININE FOR GFR 0.66 MG/DL (0.55-1.30); GLOMERULAR FILTRATION RATE > 60.0 (>39); GLUCOSE, FASTING 92 MG/DL (74-106); POTASSIUM SERUM 3.9 MMOL/L (3.5-5.1); SODIUM LEVEL 143 MMOL/L (136-145); TOTAL PROTEIN 6.8 G/DL (5.7-8.2)
== END 2024-09-21 12:20 | disposition left against medical advice (07) ==
LOC: M ED 10:06
DX: K92.2 Gastrointestinal hemorrhage, unspecified (principal); Z53.9 Procedure and treatment not carried out, unspecified reason; I10 Essential (primary) hypertension; E03.9 Hypothyroidism, unspecified; M54.2 Cervicalgia; G43.909 Migraine, unspecified, not intractable, without status migrainosus; Z79.899 Other long term (current) drug therapy; Z88.8 Allergy status to other drugs, medicaments and biological substances